=== PATIENT | female | born 1980 | race Caucasian/White ===

== ENCOUNTER → 2016-11-04 | Outpatient (REF) | payer OTHER | LOC: M LAB REF 18:31 | PROVIDERS: ATTEND Physician Assistant Medical | DX: J02.9 Acute pharyngitis, unspecified (principal) ==

== ENCOUNTER → 2017-03-02 | Outpatient (CLI) | payer OTHER ==
--- NOTE | 2017-03-02 12:46 | REP ---
Lumbar spine series: Five views. History: Low back pain. Comparison radiographs are from July 03, 2014. Findings: The lumbar vertebral body heights are preserved. There is mild disc space narrowing at L4-5 unchanged. Pedicles and posterior elements are intact. There is no evidence of spondylolysis or spondylolisthesis. Sacrum and SI joints are intact. There is mild facet hypertrophy bilaterally at L5-S1 and L4-5. Impression: Mild degenerative changes. No significant change from July 03, 2014. Signed by Hector Brito MD 03/02/2017 12:52 P
== END ==
LOC: M ADAMS 11:02
PROVIDERS: ATTEND Physician Assistant Medical
DX: M54.5 Low back pain (principal); M51.36 Other intervertebral disc degeneration, lumbar region; M51.37 Other intervertebral disc degeneration, lumbosacral region

== ENCOUNTER → 2017-05-13 | Outpatient (REF) | payer OTHER | LOC: M LAB REF 09:44 | PROVIDERS: ATTEND Physician Assistant | DX: J02.9 Acute pharyngitis, unspecified (principal) ==

== ENCOUNTER → 2017-09-12 | Outpatient (REF) | payer OTHER | LOC: M SFHCWAGY 15:31 | DX: Z12.4 Encounter for screening for malignant neoplasm of cervix (principal) | CPT/HCPCS: G0123 ==

== ENCOUNTER 2019-08-15 05:50 | Emergency (ER) | payer OTHER ==
[~2019-08-15] VITALS: Ht 165.1 cm; Wt 117.9 kg
[2019-08-15] MEDS ORDERED: LOSA25TA14 PO (06:15)
[2019-08-15] MEDS ORDERED: SIMV40TA20 PO (06:15)
[2019-08-15] MEDS ORDERED: PREVTAB2 PO (06:15)
[2019-08-15 06:28] LABS: BASO % 0.5 % (0.0-1.0); EOS % 0.4 % (0.0-3.0); HEMATOCRIT 43.2 % (36.0-47.0); HEMOGLOBIN 13.9 g/dl (12.0-15.5); LYMPH # 1.6 10^3/uL (1.5-5.0); LYMPH % 20.3 % (24.0-44.0); MEAN CORPUSCULAR HEMOGLOBIN 29.4 pg (27.0-33.0); MEAN CORPUSCULAR HGB CONC 32.2 g/dl (32.0-36.5); MEAN CORPUSCULAR VOLUME 91.5 fl (80.0-96.0); MONO # 0.5 10^3/uL (0.0-0.8); NEUTROPHILS # 5.7 10^3/uL (1.5-8.5); NEUTROPHILS % 72.5 % (36.0-66.0); PLATELET COUNT, AUTOMATED 368 10^3/uL (150-450); RED BLOOD COUNT 4.72 10^6/uL (4.00-5.40); WHITE BLOOD COUNT 7.8 10^3/uL (4.0-10.0)
--- NOTE | 2019-08-15 06:30 | REP ---
Clinical: Acute chest pain . Comparison: 09/05/2005 . Findings: The mediastinum and cardiac silhouette are stable and within normal limits for portable technique. The lung armstrong are clear without acute consolidation, effusion, or pneumothorax. Skeletal structures are intact. Impression: No acute cardiopulmonary process appreciated. Electronically Signed by Gonzalez Amin MD 08/15/2019 06:21 A
[2019-08-15 06:39] LABS: INR 1.03; PROTHROMBIN TIME 13.2 SECONDS (11.8-14.0)
[2019-08-15 07:07] LABS: ALBUMIN 3.5 GM/DL (3.2-5.2); ALT/SGPT 17 U/L (12-78); BILIRUBIN,DIRECT 0.1 MG/DL (0.0-0.2); BILIRUBIN,TOTAL 0.4 MG/DL (0.2-1.0); CK-MB VALUE MASS 1.1 NG/ML (<3.6); CPK CREATINE PHOSPHOKINASE 107 U/L (26-192); LIPASE 131 U/L (73-393); MB/CK RELATIVE INDEX 1.03 (< OR =4); TOTAL PROTEIN 7.4 GM/DL (6.4-8.2); TROPONIN I < 0.02 NG/ML (< 0.10)
[2019-08-15] MEDS ORDERED: HOLTER (08:01)
[2019-08-15] MEDS ORDERED: SUCR1TA PO (08:02)
[2019-08-15] MEDS ORDERED: OMEP40CA97 PO (08:02)
[2019-08-15 08:40] VITALS: BP 132/71
--- NOTE | 2019-08-15 13:27 | ECGEPIP ---
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
== END 2019-08-15 08:47 | disposition home or self-care (01) ==
LOC: M ED 05:50
DX: R00.2 Palpitations (principal); K21.9 Gastro-esophageal reflux disease without esophagitis; I10 Essential (primary) hypertension; E78.5 Hyperlipidemia, unspecified; E66.9 Obesity, unspecified; Z79.899 Other long term (current) drug therapy; Z79.3 Long term (current) use of hormonal contraceptives; Z88.1 Allergy status to other antibiotic agents; Z88.2 Allergy status to sulfonamides

== ENCOUNTER → 2019-08-15 | Outpatient (CLI) | payer OTHER ==
[~2019-08-15] MED LIST: HOLTER; LOSA25TA14 PO; OMEP40CA97 PO; PREVTAB2 PO; SIMV40TA20 PO; SUCR1TA PO
--- NOTE | 2019-08-17 22:27 | HOLTMON ---
[facility] Test Date: 2019-08-15 Pat Name: PATRICIO WILLS Department: Room: - Gender: Female Chief Supply Chain Officer: Jesi Bejarano/JESSICA MARCOS : 1980 Requested By: BINU Mcdonald Order Number: [id number] Reading MD: Anil Perez Interpretive Statements Normal sinus rhythm with a maximum heart of 127 bpm noted at 5:44:08 PM and a minimum rate of 59 bpm at 8:42:08 AM. No activity reported with the maximum heart rate. No pause. Very rare isolated PACs. No supraventricular run. No PVCs. Symptoms: Palpitations but no associated arrhythmias. Normal Holter monitor study. Electronically Signed on 08-17-2019 22:27:15 EST by Anil Perez
== END ==
LOC: M EKG 09:06
PROVIDERS: ATTEND Internal Medicine
DX: R00.2 Palpitations (principal)

== ENCOUNTER → 2019-09-30 | Outpatient (CLI) | payer OTHER ==
--- NOTE | 2019-09-30 17:09 | REPMRS ---
Patient History The patient states she had a clinical breast exam in September 2019. Patient is nulliparous. Family history of unknown cancer in father, colorectal cancer in maternal grandfather. Taking hormonal contraceptives for 8 years. 3D TOMOSYNTHESIS WAS PERFORMED. [facility] lifetime risk for breast cancer is 14.7%. Digital Woman Screen Mammo: September 30, 2019 - Exam #: [id number] Bilateral CC and MLO view(s) were taken. Technologist: Chiquis Rudolph Technologist FINDINGS: The breast tissue is heterogeneously dense. This may lower the sensitivity of mammography. There is no evidence of cancer on this mammogram. Scattered lymph nodes are seen in the axilla. Assessment: BI-RADS/ACR category 2 mammogram. Benign Findings. Recommendation Routine screening mammogram of both breasts in 1 year (for women over age 40). This mammogram was interpreted with the aid of an FDA-approved computer-aided dectection system. Electronically Signed By: Florencio Anguiano MD 09/30/19 [id number]
== END ==
LOC: M WHC 15:13
PROVIDERS: ATTEND Nurse Practitioner Women's Health
DX: Z12.31 Encounter for screening mammogram for malignant neoplasm of breast (principal); Z80.8 Family history of malignant neoplasm of other organs or systems; Z92.0 Personal history of contraception

== ENCOUNTER → 2020-09-30 | Outpatient (CLI) | payer OTHER ==
--- NOTE | 2020-09-30 16:38 | REPMRS ---
Patient History The patient states she had a clinical breast exam in September 2020. Family history of unknown cancer in father, colorectal cancer in maternal grandfather. Taking hormonal contraceptives for 8 years. Digital Woman Screen Mammo: September 30, 2020 - Exam #: [id number] Bilateral CC and MLO view(s) were taken. Technologist: Sindy Swift, Technologist Prior study comparison: September 30, 2019, bilateral digital woman screen mammo performed at [facility] and [facility]. FINDINGS: The breast tissue is almost entirely fat. The Volpara volumetric breast density category is: A. There has been no change in the appearance of the mammogram from the prior studies. There is no interval development of dominant mass, architectural distortion, or grouped microcalcification typical of malignancy. 3-D tomosynthesis shows no additional findings. Assessment: BI-RADS/ACR category 1 mammogram. Negative Mammogram. Recommendation Routine screening mammogram of both breasts in 1 year (for women over age 40). This patient's [facility] Lifetime Breast Cancer RIsk is estimated at 14.5 %. This mammogram was interpreted with the aid of an FDA-approved computer-aided dectection system. Electronically Signed By: Jonas Brito MD 09/30/20 [id number]
== END ==
LOC: M WHC 15:04
PROVIDERS: ATTEND Nurse Practitioner Women's Health
DX: Z12.31 Encounter for screening mammogram for malignant neoplasm of breast (principal); Z92.0 Personal history of contraception

== ENCOUNTER → 2020-09-30 | Outpatient (REF) | payer OTHER | LOC: M SFHCWAGY 17:14 | PROVIDERS: ATTEND Nurse Practitioner Women's Health | DX: Z12.4 Encounter for screening for malignant neoplasm of cervix (principal) | CPT/HCPCS: 87624; G0123 ==

== ENCOUNTER 2021-05-10 16:24 | Emergency (ER) | payer OTHER ==
[~2021-05-10] VITALS: Ht 165.1 cm; Wt 132.8 kg
[~2021-05-10 16:24] MED LIST changes: +OMEP40CA4 PO; -OMEP40CA97 PO
--- OUTSIDE RECORDS SUMMARY | 2021-05-10 16:29 | CCD | Continuity of Care Document ---
Author Author Jackie BLANCAS M.D. Organization Unknown Address [address] [facility] [address] [place] [address] Phone [phone] Care Team Providers Care Waredresser Name Role Phone Pérez Blancas MD [facility] [phone] Problems Active Problems Provider Date Hyperlipidemia Harjinder Carla, CENTRAL COMMUNICATIONS SPECIALIST Onset: 01/05/2015 Sciatica Harjinder Aguirre, CENTRAL COMMUNICATIONS SPECIALIST Onset: 01/05/2015 Obesity Harjinder Aguirre, CENTRAL COMMUNICATIONS SPECIALIST Onset: 01/05/2015 Social History Type Date Description Comments Sex Unknown ETOH Use Rarely consumes wine Tobacco Use Start: Unknown Patient has never smoked Allergies, Adverse Reactions, Alerts Active Allergies Criticality Reaction | Severity Comments Date Sulfa Unable to assess criticality Rash 01/05/2015 Medications Active Medications SIG Qnty Indications Ordering Provide r Date Simvastatin 40mg Tablets Take One Tablet By Mouth AT Bedtime 90tabs Fiona Pineda DO 12/27/2020 Ropinirole HCL 0.25mg Tablets take 2 tabs before bed. 60tabs G25.81 Pérez Blancas M.D. 02/23/2020 Sertraline HCL 50mg Tablets 1 by mouth every day 90tabs F41.9 Pérez Blancas M.D. 10/03/2019 Hydroxyzine HCL 25mg Tablets take 1 tablet QHS as needed anxiety 30tabs F41.9 Pérez Blancas M.D. 09/[address] 1 by mouth every day 90caps Pérez Blancas M.D. 08/18/2019 Eucrisa 2% Ointment use once daily as needed 60gm Pérez Blancas M.D. 06/17/2018 Previfem 0.25-35mg-mcg Tablets 1 by mouth every day Pérez Blancas M.D. 12/14/2017 Aleve 220mg Capsules 1 by mouth every day as needed Harjinder Carla, [facility] 03/07/2017 Aczone Gel Apply qd Harjinder Carla, [facility] 07/04/2016 Multivitamin Women Tablets 1 by mouth every day Harjinder Carla, [facility] 07/04/2016 Losartan Potassium 25mg Tablets Take One Tablet By Mouth Daily 90tabs I10 Fiona Pineda, 04/03/2016 Tazorac Cream qd Unknown Onexton 1.2-3.75% Gel Apply q d Unknown Medications Administered in Office Medication SIG Qnty Indications Ordering Provider Date Covid-19 vaccine, Unspecified Inj ection Unknown 07/31/2020 Immunizations CPT Code Status Date Vaccine Lot # U-Flu Given 04/26/2018 Influenza,Unspecified [id number] Vital Signs Date Vital Result Comment 02/28/2021 10:33am BP Systolic 136 mmHg BP Diastolic 82 mmHg Heart Rate 78 /min Height 65.50 inches 5'5.50" Weight 287.00 lb BMI (Body Mass Index) 47.0 kg/m2 08/27/2020 3:09pm BP Systolic 132 mmHg BP Diastolic 88 mmHg Heart Rate 70 /min Height 65.50 inches 5'5.50" Weight 291.00 lb BMI (Body Mass Index) 47.7 kg/m2 Results Test Acquired Date Facility Test Result H/L Range Note Comprehensive Chem Profile 02/22/2021 [facility] Head Start Teacher: [place] [address] [phone] Glucose 83 mg/dL 74 - 99 1 BUN 9 mg/dL 7 - 18 Creatinine 0.8 mg/dL 0.6 - 1.3 Sodium 139 mEq/L 136 - 145 Potassium 4.3 mEq/L 3.5 - 5.1 Chloride 104 mEq/L 98 - 107 Carbon Dioxide 27 mEq/L 21 - 32 Calcium 8.9 mg/dL 8.5 - 10.1 Alk. Phosphatase 67 mg/dL 46 - 116 Total Bilirubin 0.4 mg/dL 0.2 - 1.0 Ast (Sgot) 15 U/L 15 - 37 Alt (SGPT) 26 U/L 12 - 78 Albumin 3.0 g/dL Low 3.4 - 5.0 2 Total Protein 6.4 g/dL 6.4 - 8.2 A/G Ratio 0.88 CALC Low 1.00 - 1.90 GFR >= 60 mL/min >60 GFR >= 60 mL/min >60 3 Lipid Profile 02/22/2021 [facility] Head Start Teacher: [place] [address] [phone] Cholesterol 199 mg/dL 131 - 200 Triglycerides 157 mg/dL High 30 - 150 HDL Cholesterol 73 mg/dL High 35 - 60 LDL (Calculated) 95 CALC 50 - 159 1 100-125 mg/dL PRE-DIABET ES/FASTING >126 mg/dL DIABETES/FASTING 2 NOTE: RESULT VERIFIED. 3 CHRONIC KIDNEY DISEASE STAGI NG PER NKF STAGE I & II GFR >= 60 NORMAL TO MILDLY DECREASED STAGE III GFR 30-59 MODERATELY DECREASED STAGE IV GFR 15-29 SEVERELY DECREASED STAGE V GFR <15 VERY LITTLE GFR LEFT ESRD GFR <15 ON BEAM PRESS OPERATOR Procedures Date Code Description Status 02/28/2021 51688 Est Prevent Med (40-64Yrs) Compl eted Medical Devices Description No Information Available Encounters Type Date Location Provider Dx Diagnosis Office Visit 02/28/2021 10:30a [facility] Pérez Blancas M.D. Z00.00 Encntr for general adult medical exam w/ o abnormal findings I10 Essential (primary) hyperten mansi E78.5 Hyperlipidemia, unspecified G25.81 Restless legs syndrome K21.9 Gastro-esophageal reflux dis ease without esophagitis M54.31 Sciatica, right side F41.9 Anxiety disorder, unspecifie d L20.9 Atopic dermatitis, unspecifi ed G47.09 Other insomnia Z13.89 Encounter for screening for other disorder Assessments Date Code Description Provider 02/28/2021 Z00.00 Encounter for genera l adult medical examination without abnormal findings Pérez Blancas M.D. 02/28/2021 I10 Essential (primary) hypertension Pérez Blancas M.D. 02/28/2021 E78.5 Hyperlipidemia, unspecified Patria Blancas M.D. 02/28/2021 G25.81 Restless legs syndrome Pérez Blancas M.D. 02/28/2021 K21.9 Gastro-esophageal reflux disease without esophagitis Pérez Blancas M.D. 02/28/2021 M54.31 Sciatica, right side Pérez maher M.D. 02/28/2021 F41.9 Anxiety disorder, unspecified Jaya Blancas M.D. 02/28/2021 L20.9 Atopic dermatitis, unspecified J frantz Blancas M.D. 02/28/2021 G47.09 Other insomnia Pérez Blancas M.D. 02/28/2021 Z13.89 Encounter for screening for othe r disorder Pérez Blancas M.D. 02/22/2021 I10 Essential (primary) hypertension Pérez Blancas M.D. 02/22/2021 I10 Essential (primary) hypertension Lab Schedule 02/22/2021 E78.5 Hyperlipidemia, unspecified Patria Blancas M.D. 02/22/2021 E78.5 Hyperlipidemia, unspecified Lab Schedule Plan of Treatment Future Appointment(s):* 09/09/2021 2:30 pm - [facility] 02/28/2021 - Pérez Blancas M.D.* Z00.00 Encntr for general adult medical exam w/o abnormal findings * I10 Essential (primary) hypertension * E78.5 Hyperlipidemia, unspecified * G25.81 Restless legs syndrome * K21.9 Gastro-esophageal reflux disease without esophagitis * M54.31 Sciatica, right side * F41.9 Anxiety disorder, unspecified * L20.9 Atopic dermatitis, unspecified * G47.09 Other insomnia * Z13.89 Encounter for screening for other disorder * * Comments:* 1. Annual well visit: Well education was done today. She follows up with Jazlyn Newell for Director Of Intelligence care as well as her mammogram in September 2020, which was normal. She reports her last Tdap was possibly in 2012, but will check and let us know appropriately. Patient is encouraged to continue to follow positive lifestyle changes.2. Hypertension: Blood pressure is stable on present regimen, will continue and monitor.3. Hyperlipidemia: Improved cholesterol and LDL is less than 100 now, although TGs are slightly high. Otherwise, her HDL remains protective. She will continue to watch her diet carefully. We will continue to monitor.4. Restless legs syndrome: Generally doing well with intermittent symptoms on Ropinirole at bedtime. We will continue to monitor her on present regimen at this point.5. Gastro- esophageal reflux disease without esophagitis: Does require PPI once daily with improvement in her symptoms and has stopped using Carafate. We will continue to monitor.6. Sciatica, right side: Recent visit at [facility], improved with prednisone for couple of weeks initially, but recurred now. She is going to see at [facility] and had good re sults prior. She will let us know if she has any issues or concerns.7. Anxiety disorder: She appears to be doing well with sertraline at current dose, will continue and monitor.8. Atopic dermatitis: Doing well on current regimen. She will continue to follow up with [facility] appropriately.9. Other insomnia: She is using Trazodone as needed, which is appropriate for regular use. She will continue to use as needed.Ongoing cares: I am going to see her again in months with . If she has new problems or issues sooner she will let us know. Functional Status Description No Information Available Mental Status Description No Information Available Referrals Description No Information Available
--- OUTSIDE RECORDS SUMMARY | 2021-05-10 16:29 | CCD | Continuity of Care Document ---
Author Author Jackie BLANCAS M.D. Organization Unknown Address [address] [facility] [address] [place] [address] Phone [phone] Care Team Providers Care Gage Designer Name Role Phone Pérez Blancas MD [facility] [phone] Problems Active Problems Provider Date Hyperlipidemia Harjinder Carla, BREAK UP WORKER Onset: 01/05/2015 Sciatica Harjinder Aguirre, BREAK UP WORKER Onset: 01/05/2015 Obesity Harjinder Aguirre, BREAK UP WORKER Onset: 01/05/2015 Social History Type Date Description Comments Sex Unknown ETOH Use Rarely consumes wine Tobacco Use Start: Unknown Patient has never smoked Allergies, Adverse Reactions, Alerts Active Allergies Reaction Severity Comments Date Sulfa Rash 01/05/2015 Medications Active Medications SIG Qnty [...] every day 90caps Pérez Blancas M.D. 08/18/2019 Sucralfate 1gm Tablets take one tablet by mouth one hour before meals four times a day 120tabs Jaya Blancas M.D. 08/18/2019 Eucrisa 2% Ointment use once daily as needed 60gm Pérez Blancas M.D. 06/17/2018 Previfem 0.25-35mg-mcg Tablets 1 by mouth every day Pérez Blancas M.D. 12/14/2017 Aleve 220mg Capsules 1 by mouth every day as needed Harjinder Aguirre, [facility] 03/07/2017 Aczone Gel Apply qd Harjinder Aguirre, [facility] 07/04/2016 Multivitamin Women Tablets 1 by mouth every day Harjinder Aguirre, [facility] 07/04/2016 Losartan Potassium 25mg Tablets Take One Tablet By Mouth Daily 90tabs I10 Fiona Pineda,DO 04/03/2016 Tazorac Cream qd Unknown Onexton 1.2-3.75% Gel Apply q d Unknown Medications Administered in Office Medication SIG Qnty Indications Ordering Provider Date Covid-19 vaccine, Unspecified Inj ection Unknown 07/31/2020 Immunizations CPT Code Status Date Vaccine Lot # U-Flu Given 04/26/2018 Influenza,Unspecified [id number] Vital Signs Date Vital Result Comment 02/28/2021 [...] H/L Range Note Comprehensive Chem Profile 02/22/2021 [facility] Parimutuel Clerk: Dr Cricket Zimmer [place], [place] [id number] [phone] Glucose 83 mg/dL 74 - 99 1 [...] 60 mL/min >60 3 Lipid Profile 02/22/2021 [facility] Parimutuel Clerk: [place] [address] [phone] Cholesterol 199 mg/dL 131 - 200 Triglycerides [...] LITTLE GFR LEFT ESRD GFR <15 ON CERTIFIED CAREGIVER Procedures Description No Information Available Medical Devices Description No Information Available Encounters Description No Information Available Assessments Date Code Description Provider 02/22/2021 I10 Essential (primary) hypertension Pérez Blancas M.D. 02/22/2021 I10 Essential (primary) hypertension Lab Schedule 02/22/2021 E78.5 Hyperlipidemia, unspecified Patria Blancas M.D. 02/22/2021 E78.5 Hyperlipidemia, unspecified Lab Schedule Plan of Treatment No Information Available Functional Status Description No Information Available Mental Status Description No Information Available Referrals Description No Information Available
--- OUTSIDE RECORDS SUMMARY | 2021-05-10 16:29 | CCD ---
Continuity of Care Document (CCD) Created on: 02/28/2021 Jackie Guzmán External Reference #: [id number] : [id number] Sex: Female Author Author Lab Schedule, Jackie Xiao Organization Unknown Address [address] [place] [address] Phone Unavailable Care Team Providers Care Motorcycle Repair Shop Supervisor Name Role Phone Pérez Bass MD [facility] [phone] Problems Active Problems Provider Date Hyperlipidemia Harjinder Carla, EXCELLENCE CONSULTANT Onset: 01/05/2015 Sciatica Harjinder Carla, EXCELLENCE CONSULTANT Onset: 01/05/2015 Obesity Harjinder Carla, EXCELLENCE CONSULTANT Onset: 01/05/2015 Social History Type Date Description [...] 2 tabs before bed. 60tabs G25.81 Pérez Bass M.D. 02/23/2020 Sertraline HCL 50mg Tablets 1 by mouth every day 90tabs F41.9 Pérez Bass M.D. 10/03/2019 Hydroxyzine HCL 25mg Tablets take 1 tablet QHS as needed anxiety 30tabs F41.9 Pérez Bass M.D. 09/[address] 1 by mouth every day 90caps Pérez Bass M.D. 08/18/2019 Sucralfate 1gm Tablets take one tablet by mouth one hour before meals four times a day 120tabs Jaya Bass M.D. 08/18/2019 Eucrisa 2% Ointment use once daily as needed 60gm Pérez Bass M.D. 06/17/2018 Previfem 0.25-35mg-mcg Tablets 1 by mouth every day Pérez Bass M.D. 12/14/2017 Aleve 220mg Capsules 1 by mouth every day as needed Harjinder Carla, [facility] 03/07/2017 Aczone Gel Apply qd Harjinder Carla, [facility] 07/04/2016 Multivitamin Women Tablets 1 by mouth every day Harjinder Carla, [facility] 07/04/2016 Losartan Potassium 25mg Tablets Take One Tablet By Mouth Daily 90tabs I10 Fiona Pineda, 04/03/2016 Tazorac Cream qd Unknown Onexton 1.2-3.75% Gel Apply q d Unknown Medications Administered in Office Medication SIG Qnty Indications Ordering Provider Date Covid-19 vaccine, Unspecified Inj ection Unknown 07/31/2020 Immunizations CPT Code Status Date Vaccine Lot # U-Flu Given 04/26/2018 Influenza,Unspecified [id number] Vital Signs Date Vital Result Comment 02/28/2021 [...] H/L Range Note Comprehensive Chem Profile 02/22/2021 [facility] Escrow Officer: [place] [address] [phone] Glucose 83 mg/dL 74 - 99 1 [...] 60 mL/min >60 3 Lipid Profile 02/22/2021 [facility] Escrow Officer: [place] [address] [phone] Cholesterol 199 mg/dL 131 - 200 Triglycerides [...] LITTLE GFR LEFT ESRD GFR <15 ON BUSINESS ANALYST SALES OPERATIONS Procedures Description No Information Available Medical Devices Description No Information Available Encounters Description No Information Available Assessments Date Code Description Provider 02/22/2021 I10 Essential (primary) hypertension Pérez Bass M.D. 02/22/2021 I10 Essential (primary) hypertension Lab Schedule 02/22/2021 E78.5 Hyperlipidemia, unspecified Patria Bass M.D. 02/22/2021 E78.5 Hyperlipidemia, unspecified Lab Schedule Plan of Treatment No Information Available Functional Status Description No Information Available Mental Status Description No Information Available Referrals Description No Information Available
--- OUTSIDE RECORDS SUMMARY | 2021-05-10 16:30 | CCD | Continuity of Care Document ---
Author Author Lab Schedule, Jackie Xiao Organization Unknown Address [address] [place] [phone] Phone Unavailable Care Team Providers Care Socket Puller Name Role Phone Pérez Bass MD [facility] [phone] Problems Active Problems Provider Date Hyperlipidemia Harjinder Carla, NUT TAPPER Onset: 01/05/2015 Sciatica Harjinder Carla, NUT TAPPER Onset: 01/05/2015 Obesity Harjinder Carla, NUT TAPPER Onset: 01/05/2015 Social History Type Date Description [...] 1 by mouth every day 90tabs F41.9 Pérze Bass M.D. 10/03/2019 Hydroxyzine HCL 25mg Tablets [...] mouth every day as needed Harjinder Carla, [facility] 03/07/2017 Aczone Gel Apply qd Harjinder Carla, [facility] 07/04/2016 Multivitamin Women Tablets 1 by mouth every day Harjinder Carla, [facility] 07/04/2016 Losartan Potassium 25mg Tablets Take One Tablet By Mouth Daily 90tabs I10 Fiona Pineda, 04/03/2016 Tazorac Cream qd Unknown Onexton 1.2-3.75% Gel Apply q d Unknown Medications Administered in Office Medication SIG Qnty Indications Ordering Provider Date Covid-19 vaccine, Unspecified Inj ection Unknown 07/31/2020 Immunizations CPT Code Status Date Vaccine Lot # U-Flu Given 04/26/2018 Influenza,Unspecified [id number] Vital Signs Date Vital Result Comment 08/27/2020 3:09pm BP Systolic 132 mmHg BP Diastolic 88 mmHg Heart Rate 70 /min Height 65.50 inches 5'5.50" Weight 291.00 lb BMI (Body Mass Index) 47.7 kg/m2 02/23/2020 1:28pm BP Systolic 138 mmHg BP Diastolic 80 mmHg Heart Rate 78 /min Height 65.50 inches 5'5.50" Weight 276.00 lb BMI (Body Mass Index) 45.2 kg/m2 Results Test Acquired Date Facility Test Result H/L Range Note Comprehensive Chem Profile 02/22/2021 [facility] Weight Tester: [place] [address] [phone] Glucose 83 mg/dL 74 - 99 1 [...] 60 mL/min >60 3 Lipid Profile 02/22/2021 [facility] Weight Tester: Dr Cricket Zimmer [place], [place] [id number] [phone] Cholesterol 199 mg/dL 131 - 200 Triglycerides [...] LITTLE GFR LEFT ESRD GFR <15 ON DEPUTY [place] MARSHAL Procedures Description No Information Available Medical Devices Description No Information Available Encounters Description No Information Available Assessments Date Code Description Provider 02/22/2021 I10 Essential (primary) hypertension Pérez Bass M.D. 02/22/2021 I10 Essential (primary) hypertension Lab Schedule 02/22/2021 E78.5 Hyperlipidemia, unspecified Patria Bass M.D. 02/22/2021 E78.5 Hyperlipidemia, unspecified Lab Schedule Plan of Treatment Future Appointment(s):* 02/28/2021 10:30 am - Pérez Bass M.D. at [facility] 08/27/2020 - Pérez Bass M.D.* E78.5 Hyperlipidemia, unspecified * G25.81 Restless legs syndrome * I10 Essential (primary) hypertension * K21.9 Gastro-esophageal reflux disease without esophagitis * M54.5 Low back pain * F41.9 Anxiety disorder, unspecified * L20.9 Atopic dermatitis, unspecified * * Comments:* 1. Hyperlipidemia: Slightly increased cholesterol with a protective HDL. I have encouraged her to cut down fatty foods and to eat more vegetables. Education was done. We will continue to monitor.2. Restless legs syndrome: Doing well with Ropinirole, will continue and monitor.3. Hypertension: Blood pressure is stable on present regimen, will continue and monitor.4. GERD: Does require PPI daily with improvement in her symptoms. She does not use Carafate. We will continue to monitor.5. Low back pain: Stable. She did receive physical therapy prior at [facility]. She will let us know if she has any issues or concerns.6. Anxiety disorder: She is doing excellent on present regimen in the winter, will continue and monitor.7. Atopic dermatitis: Good results on present regimen. She did see Dr. Machado at [facility] in last December. She will follow up with them appropriately. We will monitor.8. Sinus infection: Education was done. Not a major issue. We will monitor.Ongoing cares: I am going to see her again in 6 months with CMP& lipids. If she has new problems or issues sooner she will let us know. Functional Status Description No Information Available Mental Status Description No Information Available Referrals Description No Information Available
--- OUTSIDE RECORDS SUMMARY | 2021-05-10 16:30 | CCD | Continuity of Care Document ---
Author Author Lab Schedule, Jackie Xiao Organization Unknown Address [address] [place] [phone] Phone Unavailable Care Team Providers Care Special Education Assistant Name Role Phone Pérez Bass MD AUTM [phone] Problems Active Problems Provider Date Hyperlipidemia Harjinder Carla, [employer] Onset: 01/05/2015 Sciatica Harjinder Carla, [employer] Onset: 01/05/2015 Obesity Harjinder Carla, [employer] Onset: 01/05/2015 Social History Type Date Description [...] mouth every day as needed Harjinder Carla, [facility] [place] 03/07/2017 Aczone Gel Apply qd Harjinder Carla, [facility] [place] 07/04/2016 Multivitamin Women Tablets 1 by mouth every day Harjinder Carla, [facility] [place] 07/04/2016 Losartan Potassium 25mg Tablets Take One Tablet By Mouth Daily 90tabs I10 Fiona Pineda, 04/03/2016 Tazorac Cream qd Unknown Onexton 1.2-3.75% Gel Apply q d Unknown Medications Administered in Office Medication SIG Qnty Indications Ordering Provider Date Covid-19 vaccine, Unspecified Inj ection Unknown 07/31/2020 Immunizations CPT Code Status Date Vaccine Lot # U-[id number] Given 04/26/2018 Influenza,Unspecified [id number] Vital Signs Date Vital Result Comment 08/27/2020 3:09pm BP Systolic 132 mmHg BP Diastolic 88 mmHg Heart Rate 70 /min Height 65.50 inches 5'5.50" Weight 291.00 lb BMI (Body Mass Index) 47.7 kg/m2 02/23/2020 1:28pm BP Systolic 138 mmHg BP Diastolic 80 mmHg Heart Rate 78 /min Height 65.50 inches 5'5.50" Weight 276.00 lb BMI (Body Mass Index) 45.2 kg/m2 Results Description No Information Available Procedures Date Code Description Status 08/27/2020 36066 Office/Outpatient Established Mo d MDM 30-39 Min Completed Medical Devices Description No Information Available Encounters Type Date Location Provider Dx Diagnosis Office Visit 08/27/2020 3:00p [facility] Pérez Bass M.D. E78.5 Hyperlipidemia, unspecified G25.81 Restless legs syndrome I10 Essential (primary) hyperten mansi K21.9 Gastro-esophageal reflux dis ease without esophagitis M54.5 Low back pain F41.9 Anxiety disorder, unspecifie d L20.9 Atopic dermatitis, unspecifi ed Assessments Date Code Description Provider 08/27/2020 E78.5 Hyperlipidemia, unspecified Patria Bass M.D. 08/27/2020 G25.81 Restless legs syndrome Pérez Bass M.D. 08/27/2020 I10 Essential (primary) hypertension Pérez Bass M.D. 08/27/2020 K21.9 Gastro-esophageal reflux disease without esophagitis Pérez Bass M.D. 08/27/2020 M54.5 Low back pain Pérez Bass M.D. 08/27/2020 F41.9 Anxiety disorder, unspecified Jaya Bass M.D. 08/27/2020 L20.9 Atopic dermatitis, unspecified J frantz Bass M.D. Plan of Treatment Future Appointment(s):* 02/28/2021 10:30 am - Pérez Bass M.D. at [facility] 08/27/2020 - Pérez Bass M.D.* E78.5 [...] She did receive physical therapy prior at [facility]. She will let us know if she has any issues or concerns.6. Anxiety disorder: She is doing excellent on present regimen in the winter, will continue and monitor.7. Atopic dermatitis: Good results on present regimen. She did see Dr. Machado at [facility] in last December. She will follow [...]
--- OUTSIDE RECORDS SUMMARY | 2021-05-10 16:30 | CCD ---
Author Author [facility] Organization [facility] Address Unknown Phone Unavailable Care Team Providers Care Laundry Attendant Name Role Phone Maring, Everardo PA Unavailable Unavailable Maring, Everardo PA Unavailable Unavailable Maring, Everardo PA Unavailable Unavailable Maring, Everardo PA Unavailable Unavailable Maring, Everardo PA Unavailable Unavailable Maring, Everardo PA Unavailable Unavailable Maring, Everardo PA Unavailable Unavailable Maring, Everardo PA Unavailable Unavailable Maring, Everardo PA Unavailable Unavailable Maring, Everardo PA Unavailable Unavailable Maring, Everardo PA Unavailable Unavailable Maring, Everardo PA Unavailable Unavailable Maring, Everardo PA Unavailable Unavailable Maring, Everardo PA Unavailable Unavailable Maring, Everardo PA Unavailable Unavailable Maring, Everardo PA Unavailable Unavailable Gastelum, Halle ELECTRIC TRAIN DRIVER Unavailable Unavailable Gastelum, Halle ELECTRIC TRAIN DRIVER Unavailable Unavailable Gastelum, Halle ELECTRIC TRAIN DRIVER Unavailable Unavailable Gastelum, Halle ELECTRIC TRAIN DRIVER Unavailable Unavailable Gastelum, Halle ELECTRIC TRAIN DRIVER Unavailable Unavailable Gastelum, Halle ELECTRIC TRAIN DRIVER Unavailable Unavailable Gastelum, Halle ELECTRIC TRAIN DRIVER Unavailable Unavailable Gastelum, Halle ELECTRIC TRAIN DRIVER Unavailable Unavailable Gastelum, Halle ELECTRIC TRAIN DRIVER Unavailable Unavailable Gastelum, Halle ELECTRIC TRAIN DRIVER Unavailable Unavailable Gastelum, Halle ELECTRIC TRAIN DRIVER Unavailable Unavailable Gastelum, Halle ELECTRIC TRAIN DRIVER Unavailable Unavailable Gastelum, Halle ELECTRIC TRAIN DRIVER Unavailable Unavailable Carol Bass MD Unavailable Unavailable Carol Bass MD Unavailable Unavailable Carol Bass MD Unavailable Unavailable Carol Bass MD Unavailable Unavailable Carol Bassson MD Unavailable Unavailable White F Pérez CABRERA Unavailable Unavailable White F Pérez CABRERA Unavailable Unavailable White F Pérez CABRERA Unavailable Unavailable White F Pérez CABRERA Unavailable Unavailable White F Pérez CABRERA Unavailable Unavailable White F Pérez CABRERA Unavailable Unavailable White F Pérez CABRERA Unavailable Unavailable White F Pérez CABRERA Unavailable Unavailable White F Pérez CABRERA Unavailable Unavailable White F Pérez CABRERA Unavailable Unavailable White F Pérez CABRERA Unavailable Unavailable White F Pérez CABRERA Unavailable Unavailable White F Pérez CABRERA Unavailable Unavailable White F Pérez CABRERA Unavailable Unavailable White F Pérez CABRERA Unavailable Unavailable White F Pérez CABRERA Unavailable Unavailable White F Pérez CABRERA Unavailable Unavailable White F Pérez CABRERA Unavailable Unavailable White F Pérez CABRERA Unavailable Unavailable White F Pérez CABRERA Unavailable Unavailable White F Pérez CABRERA Unavailable Unavailable White F Pérez CABRERA Unavailable Unavailable White F Pérez CABRERA Unavailable Unavailable Kali F Pérez CABRERA Unavailable Unavailable Kali F Pérez CABRERA Unavailable Unavailable Kali F Pérez CABRERA Unavailable Unavailable Kali F Pérez CABRERA Unavailable Unavailable Kali F Pérez CABRERA Unavailable Unavailable Kali F Pérez CABRERA Unavailable Unavailable Kali F Pérez CABRERA Unavailable Unavailable Kali F Pérez CABRERA Unavailable Unavailable Kali F Pérez CABRERA Unavailable Unavailable Kali F Pérez CABRERA Unavailable Unavailable Kali F Pérez CABRERA Unavailable Unavailable Kali F Pérez CABRERA Unavailable Unavailable Kali F Pérez CABRERA Unavailable Unavailable Kali F Pérez CABRERA Unavailable Unavailable Kali F Pérez CABRERA Unavailable Unavailable Kali F Pérez CABRERA Unavailable Unavailable Kali F Pérez CABRERA Unavailable Unavailable Kali F Pérez CABRERA Unavailable Unavailable Carol Bass MD Unavailable Unavailable Kali F Pérez CABRERA Unavailable Unavailable Kali F Pérez CABRERA Unavailable Unavailable Kali F Pérez CABRERA Unavailable Unavailable Kali F Pérez CABRERA Unavailable Unavailable Kali F Pérez CABRERA Unavailable Unavailable Kali F Pérez CABRERA Unavailable Unavailable Kali F Pérez CABRERA Unavailable Unavailable Kali F Pérez CABRERA Unavailable Unavailable Kali F Pérez CABRERA Unavailable Unavailable Kali F Pérez CABRERA Unavailable Unavailable Kali F Pérez CABRERA Unavailable Unavailable Kali F Pérez CABRERA Unavailable Unavailable Kali F éPrez CABRERA Unavailable Unavailable Kali F Pérez CABRERA Unavailable Unavailable Kali F Pérez CABRERA Unavailable Unavailable Kali F Pérez CABRERA Unavailable Unavailable Carol Bass MD Unavailable Unavailable Carol Bass MD Unavailable Unavailable Kali F Pérez CABRERA Unavailable Unavailable Carol Bass MD Unavailable Unavailable Carol Bass MD Unavailable Unavailable Carol Bass MD Unavailable Unavailable Carol Bass MD Unavailable Unavailable Carol Bass MD Unavailable Unavailable Carol Bass MD Unavailable Unavailable Carol Bass MD Unavailable Unavailable Carol Bass MD Unavailable Unavailable Carol Bass MD Unavailable Unavailable Carol Bass MD Unavailable Unavailable Carol Bass MD Unavailable Unavailable ALEXANDRA Martinez, Lexy Unavailable CarguTolu shankar Carter DO Unavailable Unavailable CarguelloTolu Carter DO Unavailable Unavailable CarguelloTolu Carter DO Unavailable Unavailable CarguelloTolu Carter DO Unavailable Unavailable CarguelloTolu Carter DO Unavailable Unavailable CarguelloTolu Carter DO Unavailable Unavailable CarguelloTolu Carter DO Unavailable Unavailable CarguelloTolu Carter DO Unavailable Unavailable CarguelloTolu Carter DO Unavailable Unavailable CarguelloTolu Carter DO Unavailable Unavailable CarguelloTolu Carter DO Unavailable Unavailable CarguelloTolu Carter DO Unavailable Unavailable CarguelloTolu Carter DO Unavailable Unavailable CarguelloTolu Carter DO Unavailable Unavailable CarguelloTolu Carter DO Unavailable Unavailable CarguelloTolu Carter DO Unavailable Unavailable CarguelloTolu Carter DO Unavailable Unavailable CarguelloTolu Carter DO Unavailable Unavailable CarguelloTolu Carter DO Unavailable Unavailable CarguelloTolu Carter DO Unavailable Unavailable CarguelloTolu Carter DO Unavailable Unavailable CarguelloTolu Carter DO Unavailable Unavailable CarguelloTolu Carter DO Unavailable Unavailable CarguelloTolu Carter DO Unavailable Unavailable CarguelloTolu Carter DO Unavailable Unavailable CarguelloTolu Carter DO Unavailable Unavailable CarguelloTolu Carter DO Unavailable Unavailable CarguelloTolu Carter DO Unavailable Unavailable CarguelloTolu Carter DO Unavailable Unavailable CarguelloTolu Carter DO Unavailable Unavailable CarguelloTolu Carter DO Unavailable Unavailable CarguelloTolu Carter DO Unavailable Unavailable CarguelloTolu Carter DO Unavailable Unavailable CarguelloTolu Carter DO Unavailable Unavailable CarguelloTolu Carter DO Unavailable Unavailable CarguelloTolu Carter DO Unavailable Unavailable CarguelloTolu Carter DO Unavailable Unavailable CarguelloTolu Carter DO Unavailable Unavailable CarguelloTolu Carter DO Unavailable Unavailable Carguello, J Carter DO Unavailable Unavailable Carguello J Carter DO Unavailable Unavailable Carguello J Carter DO Unavailable Unavailable Carguello J Carter DO Unavailable Unavailable Carguello J Carter DO Unavailable Unavailable Carguello J Carter DO Unavailable Unavailable Carguello J Carter DO Unavailable Unavailable Carguello, J Carter DO Unavailable Unavailable Carguello, J Carter DO Unavailable Unavailable Carguello, J Carter DO Unavailable Unavailable Carguello, J Carter DO Unavailable Unavailable Carguello J Carter DO Unavailable Unavailable Carguello J Carter DO Unavailable Unavailable Carguello J Carter DO Unavailable Unavailable Carguello J Carter DO Unavailable Unavailable Carguello J Carter DO Unavailable Unavailable Carguello J Carter DO Unavailable Unavailable Carguello J Carter DO Unavailable Unavailable Carguello, J Carter DO Unavailable Unavailable Carguello J Carter DO Unavailable Unavailable Carguello J Carter DO Unavailable Unavailable Carguello, J Carter DO Unavailable Unavailable Carguello J Carter DO Unavailable Unavailable Carguello J Carter DO Unavailable Unavailable Carguello J Carter DO Unavailable Unavailable Carguello J Carter DO Unavailable Unavailable Carguello J Carter DO Unavailable Unavailable Carguello J Carter DO Unavailable Unavailable Carguello J Carter DO Unavailable Unavailable Carguello J Carter DO Unavailable Unavailable Carguello J Carter DO Unavailable Unavailable Carguello J Carter DO Unavailable Unavailable Carguello J Carter DO Unavailable Unavailable Carguello J Carter DO Unavailable Unavailable Carguello J Carter DO Unavailable Unavailable Carguello J Carter DO Unavailable Unavailable Carguello J Carter DO Unavailable Unavailable Carguello J Carter DO Unavailable Unavailable Carguello J Carter DO Unavailable Unavailable Carguello J Carter DO Unavailable Unavailable Carguello J Carter DO Unavailable Unavailable Carguello J Carter DO Unavailable Unavailable Carguello J Carter DO Unavailable Unavailable Carguello J Carter DO Unavailable Unavailable Carguello J Carter DO Unavailable Unavailable Carguello J Carter DO Unavailable Unavailable Carguello J Carter DO Unavailable Unavailable Carguello J Carter DO Unavailable Unavailable Carguello J Carter DO Unavailable Unavailable KATHARINA JONES Unavailable Unavailable ROBERT, KATHARINA PA Unavailable Unavailable ROBERT, KATHARINA PA Unavailable Unavailable ROBERT, KATHARINA PA Unavailable Unavailable ROBERT, KATHARINA PA Unavailable Unavailable ROBERT, KATHARINA PA Unavailable Unavailable ROBERT, KATHARINA PA Unavailable Unavailable ROBERT, KATHARINA PA Unavailable Unavailable ROBERT, KATHARINA PA Unavailable Unavailable ROBERT, KATHARINA PA Unavailable Unavailable ROBERT, KATHARINA PA Unavailable Unavailable ROBERT, KATHARINA PA Unavailable Unavailable ROBERT, KATHARINA PA Unavailable Unavailable ROBERT, KATHARINA PA Unavailable Unavailable ROBERT, KATHARINA PA Unavailable Unavailable ROBERT, KATHARINA PA Unavailable Unavailable ROBERT, KATHARINA PA Unavailable Unavailable ROBERT, KATHARINA PA Unavailable Unavailable ROBERT, KATHARINA PA Unavailable Unavailable ROBERT, KATHARINA PA Unavailable Unavailable ROBERT, KATHARINA PA Unavailable Unavailable ROBERT, KATHARINA PA Unavailable Unavailable ROBERT, KATHARINA PA Unavailable Unavailable ROBERT, KATHARINA PA Unavailable Unavailable ROBERT, KATHARINA PA Unavailable Unavailable ROBERT, KATHARINA PA Unavailable Unavailable ROBERT, KATHARINA PA Unavailable Unavailable ROBERT, KATHARINA PA Unavailable Unavailable ROBERT, KATHARINA PA Unavailable Unavailable ROBERT, KATHARINA PA Unavailable Unavailable ROBERT, KATHARINA PA Unavailable Unavailable ROBERT, KATHARINA PA Unavailable Unavailable ROBERT, KATHARINA PA Unavailable Unavailable ROBERT, KATHARINA PA Unavailable Unavailable ROBERT, KATHARINA PA Unavailable Unavailable ROBERT, KATHARINA PA Unavailable Unavailable Re-disclosure Warning The records that you are about to access may contain information from federally-assisted alcohol or drug abuse programs. If such information is present, then the following federally mandated warning applies: This information has been disclosed to you from records protected by federal confidentiality rules (42 CFR part 2). The federal rules prohibit you from making any further disclosure of this information unless further disclosure is expressly permitted by the written consent of the person to whom it pertains or as otherwise permitted by 42 CFR part 2. A general authorization for the release of medical or other information is NOT sufficient for this purpose. The Federal rules restrict any use of the information to criminally investigate or prosecute any alcohol or drug abuse patient.The records that you are about to access may contain highly sensitive health information, the redisclosure of which is protected by Article 27-F of the [place] State Public Health law. If you continue you may have access to information: Regarding HIV / AIDS; Provided by facilities licensed or operated by the [facility] Office of Mental Health; or Provided by the [facility] Office for People With Developmental Disabilities. If such information is present, then the following [facility] mandated warning applies: This information has been disclosed to you from confidential records which are protected by state law. State law prohibits you from making any further disclosure of this information without the specific written consent of the person to whom it pertains, or as otherwise permitted by law. Any unauthorized further disclosure in violation of state law may result in a fine or prison sentence or both. A general authorization for the release of medical or other information is NOT sufficient authorization for further disc losure. Family History Family Member Name Family Member Gender Family Member Status Date o f Status Description Data Source(s) Unknown Male Problem [facility]ENT ([facility]) Unknown Male Problem [facility] ([facility]) Unknown Unknown Problem [facility] ([facility]) Encounters Encounter Providers Location Date Indications Data Source(s ) Outpatient Attender: Everardo PALMER 05/04/20 03:04:44 PM EDT - 05/04/2021 03:46:32 PM EDT [facility] ([facility] ) Outpatient Attender: Pérez Pollard 02/28 10:30:00 AM EDT [facility] ([facility] ) Outpatient Attender: Everardo PALMER 02/13/20 11:54:39 AM EDT - 02/12/2021 12:28:47 PM EDT [facility] ([facility] ) [place] [address] [address] 09/30/2020 12:00:00 AM EDT eCW1 ([facility]) Outpatient<td ID="encounterTypeDescripti onID0">COVID 19 IMM</td><td>Deborah Peoples RN</td><td>[facility]</td><td>08/28/2020</td><td>9:38AM</td><td>07/31/2020 11:59PM</td><td></td> Attender: Lexy Martinez RN [facility] 08/28/2020 09:38:00 AM EST - 07/31/2020 11:59:00 PM EST [facility] ([facility]) Outpatient Attender: Pérez Pollard 08/27 02:00:00 PM EST MEDENT ([facility] ) Outpatient Attender: Halle eFlix vishal 08/16/2020 11:15:00 AM EST [facility] ([facility]) Outpatient Attender: Halle Felix vishal 08/11/2020 02:00:00 PM EST [facility] ([facility]) Outpatient<td ID="encounterTypeDescripti onID1">COVID 19 IMM</td><td>Carter Barker DO</td><td>[facility]</td><td>07/31/2020</td><td>9:43AM</td><td>10:41AM</td><td></td> Attender: Carter Barker DO [facility] 07/31/2020 09:43:00 AM EST - 07/31/2020 10:41:00 AM EST [facility] ([facility]) Outpatient Attender: KATHARINA jalloh 06/18/2020 07:15:00 AM EST [facility] ([facility]) Immunizations Vaccine Date Status Description Data Source(s) Moderna COVID-19 08/28/2020 09:41:00 AM EST completed <td ID="Bmbokwxcslecx-Vuqhbeozlap-SF0">Moderna COVID-19</td><td ID="ImmunizationDose-1">2</td><td>08/28/2020</td><td ID="Euaiaepvzhrcd-DgpymNrmr-FY1">Left Deltoid</td><td></td><td ID="Yzgrokavjqhqj-Acvmre-EQ4">Complete (Administered)</td><td>[facility]</td><td ID="Tzwuxrovvcjep-Odnlk-Nxbs-Comment-ID1"></td> [facility] ([facility]) COVID-19 VACCINE a 08/28/2020 12:00:00 AM EST completed [facility] Vaccine Series Complete: YESThis Data wa s Submitted to [facility] Via [employer]. Moderna COVID-19 07/31/2020 09:50:00 AM EST completed <td ID="Arwwcgssjilte-Smgpomdtjnv-OA6"> COVID</td><td ID="ImmunizationDose-0">1</td><td>07/31/2020</td><td ID="Junxnpnktdyip-QhzbjAoja-ND2">Right Deltoid</td><td></td><td ID="Jhobkefnjihpo-Vditwg-ZO1">Complete (Administered)</td><td>[facility]</td><td ID="Qtymjgmntibpa-Pfhmk-Iuch-Comment-ID0"></td> [facility] ([facility]) COVID-19 VACCINE a 07/31/2020 12:00:00 AM EST completed [facility]SIIS Vaccine Series Complete: NOThis Data was Submitted to [facility] Via [employer]. Medications Medication Brand Name Start Date Product Form Dose Route Admi nistrative Instructions Pharmacy Instructions Status Indications Reaction Description Data Source(s) 20 mg 05/04/2021 12:00:00 AM EDT tablet 10 TAKE TWO TABLETS BY MOUTH EVERY MORNING FOR 5 DAYS TAKE TWO TABLETS BY MOUTH EVERY MORNING FOR 5 DAYS [facility] 60 mcg (15 mcg x 4)/0.5 mL 04/27/2021 12:00:00 AM EDT suspen mansi 0 USE DIRECTED USE DIRECTED SOLD: 04/27/2021 [facility] 200 mg 04/12/2021 12:00:00 AM EDT capsule 30 TAKE ONE CAPSULE BY MOUTH EVERY 8 HOURS NEEDED FOR 10 DAYS TAKE ONE CAPSULE BY MOUTH EVERY 8 HOURS NEEDED FOR 10 DAYS SOLD: 04/12/2021 [facility] 50 mg 03/15/2021 12:00:00 AM EDT tablet 90 TAKE ONE TABLET BY MOUTH EVERY DAY TAKE ONE TABLET BY MOUTH EVERY DAY SOLD: 03/16/2021 [facility] 0.25 mg 02/15/2021 12:00:00 AM EDT tablet 60 TAKE 2 TABLETS BY MOUTH BEFORE BED TAKE 2 TABLETS BY MOUTH BEFORE BED SOLD: 03/16/2021 [facility] 0.25 mg 02/15/2021 12:00:00 AM EDT tablet 60 TAKE 2 TABLETS BY MOUTH BEFORE BED TAKE 2 TABLETS BY MOUTH BEFORE BED SOLD: 04/11/2021 [facility] 0.25 mg 02/15/2021 12:00:00 AM EDT tablet 60 TAKE 2 TABLETS BY MOUTH BEFORE BED TAKE 2 TABLETS BY MOUTH BEFORE BED SOLD: 02/16/2021 [facility] Cyclobenzaprine hydrochloride 10 MG Oral Tablet CYCLOBENZAPR INE HCL 02/12/2021 12:00:00 AM EDT tablet 10 TAKE ONE TABLET BY MOUTH AT BEDTIME FOR 10 DAYS TAKE ONE TABLET BY MOUTH AT BEDTIME FOR 10 DAYS SOLD: 02/12/2021 [facility] 800 mg 02/12/2021 12:00:00 AM EDT tablet 30 TAKE ONE TABLET BY MOUTH THREE TIMES A DAY FOR 10 DAYS TAKE ONE TABLET BY MOUTH THREE TIMES A DAY FOR 10 DAYS SOLD: 02/12/2021 [facility] 20 mg 02/12/2021 12:00:00 AM EDT tablet 10 TAKE TWO TABLETS BY MOUTH EVERY DAY IN THE MORNING FOR 5 DAYS TAKE TWO TABLETS BY MOUTH EVERY DAY IN T HE MORNING FOR 5 DAYS SOLD: 02/12/2021 [facility] 25 mg 01/19/2021 12:00:00 AM EDT tablet 30 TAKE ONE TABLET BY MOUTH AT BEDTIME NEEDED FOR ANIEXTY TAKE ONE TABLET BY MOUTH AT BEDTIME N EEDED FOR ANIEXTY SOLD: 01/20/2021 [facility] Simvastatin 40 MG Oral Tablet Simvastatin 12/27/2020 12:00:00 AM EDT active MED[facility] ([facility]) 50 mg 12/24/2020 12:00:00 AM EDT tablet 90 TAKE ONE TABLET BY MOUTH EVERY DAY TAKE ONE TABLET BY MOUTH EVERY DAY SOLD: 12/24/2020 [facility] 0.25 mg 10/26/2020 12:00:00 AM EDT tablet 60 TAKE TWO TABLETS BY MOUTH BEFORE BED TAKE TWO TABLETS BY MOUTH BEFORE BED SOLD: 11/22/2020 [facility] 0.25 mg 10/26/2020 12:00:00 AM EDT tablet 60 TAKE TWO TABLETS BY MOUTH BEFORE BED TAKE TWO TABLETS BY MOUTH BEFORE BED SOLD: 12/23/2020 [facility] 0.25 mg 10/26/2020 12:00:00 AM EDT tablet 60 TAKE TWO TABLETS BY MOUTH BEFORE BED TAKE TWO TABLETS BY MOUTH BEFORE BED SOLD: 01/17/2021 [facility] 0.25 mg 10/26/2020 12:00:00 AM EDT tablet 60 TAKE TWO TABLETS BY MOUTH BEFORE BED TAKE TWO TABLETS BY MOUTH BEFORE BED SOLD: 10/26/2020 [facility] 40 mg 09/14/2020 12:00:00 AM EST capsule,delayed release (DR/EC) 90 TAKE ONE CAPSULE BY MOUTH EVERY DAY TAKE ONE CAPSULE BY MOUTH EVERY DAY SOLD: 03/13/2021 [facility] 40 mg 09/14/2020 12:00:00 AM EST capsule,delayed release (DR/EC) 90 TAKE ONE CAPSULE BY MOUTH EVERY DAY TAKE ONE CAPSULE BY MOUTH EVERY DAY SOLD: 12/07/2020 [facility] 40 mg 09/14/2020 12:00:00 AM EST capsule,delayed release (DR/EC) 90 TAKE ONE CAPSULE BY MOUTH EVERY DAY TAKE ONE CAPSULE BY MOUTH EVERY DAY SOLD: 09/15/2020 [facility] 875-125 mg 08/16/2020 12:00:00 AM EST tablet 20 TAKE ONE TABLET BY MOUTH TWICE A DAY FOR 10 DAYS TAKE ONE TABLET BY MOUTH TWICE A DAY FOR 10 DAYS SOLD: 08/16/2020 [facility] Amoxicillin 875 MG / Clavulanate 125 MG Oral Tablet Am oxicillin/Clavulanate Potassium 08/16/2020 12:00:00 AM EST ORAL active MEDENT ([facility]) 20 mg 08/11/2020 12:00:00 AM EST tablet 8 TAKE ONE TABLET BY MOUTH TWO TIMES A DAY FOR 4 DAYS TAKE ONE TABLET BY MOUTH TWO TIMES A DAY FOR 4 DAYS SO LD: 08/11/2020 [facility] Prednisone 20 MG Oral Tablet Prednisone 08/11/2020 12:00:00 AM EST completed MEDENT ([facility]) Covid-19 vaccine, Unspecified 07/31/2020 12:00:00 AM EST completed MEDENT ([facility]) Medication administered onsite 0.25 mg 06/24/2020 12:00:00 AM EST tablet 60 TAKE 2 TABLETS BY MOUTH BEFORE BED TAKE 2 TABLETS BY MOUTH BEFORE BED SOLD: 06/25/2020 [facility] 0.25 mg 06/24/2020 12:00:00 AM EST tablet 60 TAKE 2 TABLETS BY MOUTH BEFORE BED TAKE 2 TABLETS BY MOUTH BEFORE BED SOLD: 09/23/2020 [facility] 0.25 mg 06/24/2020 12:00:00 AM EST tablet 60 TAKE 2 TABLETS BY MOUTH BEFORE BED TAKE 2 TABLETS BY MOUTH BEFORE BED SOLD: 07/25/2020 [facility] 0.25 mg 06/24/2020 12:00:00 AM EST tablet 60 TAKE 2 TABLETS BY MOUTH BEFORE BED TAKE 2 TABLETS BY MOUTH BEFORE BED SOLD: 08/25/2020 [facility] Amoxicillin 875 MG / Clavulanate 125 MG Oral Tablet Am oxicillin/Clavulanate Potassium 06/18/2020 12:00:00 AM EST ORAL completed MEDENT ([facility]) 875-125 mg 06/18/2020 12:00:00 AM EST tablet 14 TAKE ONE TABLET BY MOUTH TWICE A DAY FOR 14 DAYS TAKE ONE TABLET BY MOUTH TWICE A DAY FOR 14 DAYS SOLD: 06/18/2020 [facility] 0.25 mg 02/23/2020 12:00:00 AM EDT tablet 60 TAKE 1 TABLET BY MOUTH ON DAYS 1 AND 2 ( 1-3 HOURS PRIOR TO BEDTIME ) THEN INCREASE TO 2 TABLETS A DAY TAKE 1 TABLET BY MOUTH ON DAYS 1 AND 2 ( 1-3 HOURS PRIOR TO BEDTIME ) THEN INCREASE TO 2 TABLETS A DAY SOLD: 05/26/2020 [facility] 0.25 mg 02/23/2020 12:00:00 AM EDT tablet 60 TAKE 1 TABLET BY MOUTH ON DAYS 1 AND 2 ( 1-3 HOURS PRIOR TO BEDTIME ) THEN INCREASE TO 2 TABLETS A DAY TAKE 1 TABLET BY MOUTH ON DAYS 1 AND 2 ( 1-3 HOURS PRIOR TO BEDTIME ) THEN INCREASE TO 2 TABLETS A DAY SOLD: 03/25/2020 [facility] 0.25 mg 02/23/2020 12:00:00 AM EDT tablet 60 TAKE 1 TABLET BY MOUTH ON DAYS 1 AND 2 ( 1-3 HOURS PRIOR TO BEDTIME ) THEN INCREASE TO 2 TABLETS A DAY TAKE 1 TABLET BY MOUTH ON DAYS 1 AND 2 ( 1-3 HOURS PRIOR TO BEDTIME ) THEN INCREASE TO 2 TABLETS A DAY SOLD: 04/24/2020 [facility] 50 mg 10/03/2019 12:00:00 AM EDT tablet 90 TAKE ONE TABLET BY MOUTH EVERY DAY TAKE ONE TABLET BY MOUTH EVERY DAY SOLD: 06/25/2020 [facility] 50 mg 10/03/2019 12:00:00 AM EDT tablet 90 TAKE ONE TABLET BY MOUTH EVERY DAY TAKE ONE TABLET BY MOUTH EVERY DAY SOLD: 09/23/2020 [facility] 50 mg 10/03/2019 12:00:00 AM EDT tablet 90 TAKE ONE TABLET BY MOUTH EVERY DAY TAKE ONE TABLET BY MOUTH EVERY DAY SOLD: 03/25/2020 [facility] 25 mg 09/18/2019 12:00:00 AM EST tablet 30 TAKE ONE TABLET BY MOUTH AT BEDTIME NEEDED FOR ANXIETY TAKE ONE TABLET BY MOUTH AT BEDTIME N EEDED FOR ANXIETY SOLD: 08/25/2020 [facility] 40 mg 09/18/2019 12:00:00 AM EST capsule,delayed release (DR/EC) 90 TAKE ONE CAPSULE BY MOUTH EVERY DAY TAKE ONE CAPSULE BY MOUTH EVERY DAY SOLD: 06/12/2020 [facility] 25 mg 09/18/2019 12:00:00 AM EST tablet 30 TAKE ONE TABLET BY MOUTH AT BEDTIME NEEDED FOR ANXIETY TAKE ONE TABLET BY MOUTH AT BEDTIME N EEDED FOR ANXIETY SOLD: 03/13/2020 [facility] 40 mg 09/18/2019 12:00:00 AM EST capsule,delayed release (DR/EC) 90 TAKE ONE CAPSULE BY MOUTH EVERY DAY TAKE ONE CAPSULE BY MOUTH EVERY DAY SOLD: 03/13/2020 [facility] Insurance Providers Payer name Policy type / Coverage type Policy ID Covered democrat ID Covered democrat's relationship to rdz Policy Rdz Plan Information [facility] (pr) Commercial [id number] Self [id number] [facility] ([facility] Commercial [id number] Self [id number] [facility] Health Care Commercial [employer] Co. [id number] Self [id number] [facility] O [id number] S [id number] [facility]-Commercial [id number] [facility] Commercial [id number] Self [id number] [facility] Commercial [id number] Self [id number] [facility] Commercial [id number] Self [id number] [facility] Commercial [id number] Self [id number] [facility] Commercial [id number] Self [id number] [facility] Commercial [id number] Self [id number] [facility] Commercial [id number] Self [id number] [facility] Commercial [id number] Self [id number] [facility] Healthcare Commercial Indemnity [id number] Self Inde mnity [facility] Commercial [id number] Self [facility] [id number] SP [id number] [facility] [id number] SP [id number] [facility] Other 0 [id number] Self 0 Problems, Conditions, and Diagnoses No Information Surgeries/Procedures Procedure Description Date Indications Data Source(s) PERIODIC PREVENTIVE MED EST PATIENT 40-64YRS 1 12:00:00 AM EDT [facility] ([facility]) Immunization Administration (includes Percutaneous, In babcock tester Immunization Administration (includes Percutaneous, Intrader 08/28/2020 12:00:00 AM EST [facility] ([facility]) Moderna COVID-19 Vaccine Moderna COVID-19 Vaccine 08/28/2020 12:00: 00 AM EST [facility] ([facility]) OFFICE OUTPATIENT VISIT 25 MINUTES 08/27/2020 12:00:00 AM EST [facility] Moderna COVID-19 Vaccine Moderna COVID-19 Vaccine 07/31/2020 12:00: 00 AM EST [facility] ([facility]) Moderna COVID19 Vaccine Administration First Dose Mode rna COVID19 Vaccine Administration First Dose 07/31/2020 12:00:00 AM EST [facility] Y ([facility]) Results ID Date Data Source [id number] 04/12/2021 05:45:00 PM EDT [facility] Name Value Range Interpretation Code Description Data Luz Marina rce(s) Supporting Document(s) SARS-CoV-2 RNA Resp Ql CHEYENNE+probe NOT DETECTED [facility] This lab was ordered by LACHELLE terrazas and reported by LACHELLE Ziegler. ID Date Data Source [id number] 02/22/2021 09:51:00 AM EDT [facility] ([facility]) Name Value Range Interpretation Code Description Data Luz Marina rce(s) Supporting Document(s) Cholesterol [Mass/volume] in Serum or Plasma 199 mg/dL 131-200 [facility] ([facility]) Cholesterol in HDL [Mass/volume] in Serum or Plasma 73 mg/dL 35-60 [facility] ([facility]) Triglyceride [Mass/volume] in Serum or Plasma 157 mg/dL 30-150 [facility] ([facility]) Cholesterol in LDL [Mass/volume] in Serum or Plasma by calcu lation 95 CALC 50-159 [facility] ([facility]) ID Date Data Source [id number] 02/22/2021 09:51:00 AM EDT [facility] ([facility]) Name Value Range Interpretation Code Description Data Luz Marina rce(s) Supporting Document(s) Glucose [Mass/volume] in Serum or Plasma 83 mg/dL 74-99 [facility] ([facility]) 100-125 mg/dL PRE-DIABETES/FASTING >126 mg/dL DIABETES/FASTING Urea nitrogen [Mass/volume] in Serum or Plasma 9 mg/dL 7-18 [facility] ([facility]) Creatinine 0.8 mg/dL 0.6-1.3 [facility] Sodium [Moles/volume] in Serum or Plasma 139 meq/L 136-145 [facility] ([facility]) Potassium [Moles/volume] in Serum or Plasma 4.3 meq/L 3.5-5.1 [facility] ([facility]) Chloride [Moles/volume] in Serum or Plasma 104 meq/L 98-107 [facility] ([facility]) Carbon dioxide, total [Moles/volume] in Serum or Plasma 27 meq/L 21 -32 [facility] ([facility]) Calcium [Mass/volume] in Serum or Plasma 8.9 mg/dL 8.5-10.1 [facility] ([facility]) Alkaline phosphatase isoenzyme [Units/volume] in Serum or Pl asma 67 mg/dL 46-116 [facility] ([facility]) Total Bilirubin 0.4 mg/dL 0.2-1.0 [facility] ([facility]) Aspartate aminotransferase [Enzymatic activity/volume] in Serum or Plasma 15 U/L 15-37 [facility] ([facility] ) Alanine aminotransferase [Enzymatic activity/volume] in Seru m or Plasma 26 U/L 12-78 [facility] ([facility]) Albumin [Mass/volume] in Serum or Plasma 3.0 g/dL 3.4-5.0 [facility] ([facility]) NOTE: RESULT VERIFIED. A/G Ratio 0.88 CALC 1.00-1.90 [facility] ([facility]) Proteinase 3 Ab [Units/volume] in Serum 6.4 g/dL 6.4-8.2 [facility] ([facility]) Glomerular filtration rate/1.73 sq M pre dicted among non-blacks [Volume Rate/Area] in Serum or Plasma by Creatinine-based formula (MDRD) Laboratory test result [facility] Glomerular filtration rate/1.73 sq M pre dicted among blacks [Volume Rate/Area] in Serum or Plasma by Creatinine-based formula (MDRD) Laboratory test result [facility] ([facility]) <content>CHRONIC KIDNEY DISEASE STAGING PER NKF</content>
<content></content>
<content>STAGE I & II GFR >= 60 NORMAL TO MILDLY DECREASED</content>
<content>STAGE III GFR 30-59 MODERATELY DECREASED</content>
<content>STAGE IV GFR 15-29 SEVERELY DECREASED</content>
<content>STAGE V GFR <15 VERY LITTLE GFR LEFT</content>
<content>ESRD GFR <15 ON MECHANICAL PROJECT MANAGER</content>
<content></content> ID Date Data Source [facility] DIGITAL / DANILO BILATERAL MAMMO SCREENING (Ultraso und if indicated) 09/30/2020 12:00:00 AM EDT [facility] ([facility]) Name Value Range Interpretation Code Description Data Luz Marina rce(s) Supporting Document(s) [facility] DIGITAL / DANILO BILAT ERAL MAMMO SCREENING (Ultrasound if indicated) [facility] ([facility]) ID Date Data Source [id number] 08/25/2020 07:44:00 AM EST [facility] ([facility]) Name Value Range Interpretation Code Description Data Luz Marina rce(s) Supporting Document(s) Thyrotropin [Units/volume] in Serum or Plasma by Detec tion limit <= 0.05 mIU/L 2.18 uIU/mL 0.36-3.74 [facility] ([facility] ) ID Date Data Source [id number] 08/25/2020 07:44:00 AM EST [facility] ([facility]) Name Value Range Interpretation Code Description Data Luz Marina rce(s) Supporting Document(s) Cholesterol in HDL [Mass/volume] in Serum or Plasma 64 mg/dL 35-60 [facility] ([facility]) Triglyceride [Mass/volume] in Serum or Plasma 134 mg/dL 30-150 [facility] ([facility]) Cholesterol [Mass/volume] in Serum or Plasma 204 mg/dL 131-200 [facility] ([facility]) Cholesterol in LDL [Mass/volume] in Serum or Plasma by calcu lation 113 CALC 50-159 [facility] ([facility]) ID Date Data Source [id number] 08/25/2020 07:44:00 AM EST [facility] ([facility]) Name Value Range Interpretation Code Description Data Luz Marina rce(s) Supporting Document(s) Glucose [Mass/volume] in Serum or Plasma 102 mg/dL 74-99 [facility] ([facility]) 100-125 mg/dL PRE-DIABETES/FASTING >126 mg/dL DIABETES/FASTING Urea nitrogen [Mass/volume] in Serum or Plasma 11 mg/dL 7-18 [facility] ([facility]) Creatinine 0.7 mg/dL 0.6-1.3 [facility] Sodium [Moles/volume] in Serum or Plasma 143 meq/L 136-145 [facility] ([facility]) Potassium [Moles/volume] in Serum or Plasma 4.1 meq/L 3.5-5.1 [facility] ([facility]) Carbon dioxide, total [Moles/volume] in Serum or Plasma 30 meq/L 21 -32 [facility] ([facility]) Calcium [Mass/volume] in Serum or Plasma 8.8 mg/dL 8.5-10.1 [facility] ([facility]) Chloride [Moles/volume] in Serum or Plasma 105 meq/L 98-107 [facility] ([facility]) Alkaline phosphatase isoenzyme [Units/volume] in Serum or Pl asma 75 mg/dL 46-116 [facility] ([facility]) Aspartate aminotransferase [Enzymatic activity/volume] in Serum or Plasma 15 U/L 15-37 [facility] ([facility] ) Alanine aminotransferase [Enzymatic activity/volume] in Seru m or Plasma 24 U/L 12-78 [facility] ([facility]) Total Bilirubin 0.5 mg/dL 0.2-1.0 [facility] ([facility]) Albumin [Mass/volume] in Serum or Plasma 3.2 g/dL 3.4-5.0 [facility] ([facility]) NOTE: RESULT VERIFIED. Proteinase 3 Ab [Units/volume] in Serum 6.9 g/dL 6.4-8.2 [facility] ([facility]) A/G Ratio 0.86 CALC 1.00-1.90 [facility] Glomerular filtration rate/1.73 sq M pre dicted among non-blacks [Volume Rate/Area] in Serum or Plasma by Creatinine-based formula (MDRD) Laboratory test result [facility] ([facility] ) Glomerular filtration rate/1.73 sq M pre dicted among blacks [Volume Rate/Area] in Serum or Plasma by Creatinine-based formula (MDRD) Laboratory test result [facility] ([facility]) <content>CHRONIC KIDNEY DISEASE STAGING PER NKF</content>
<content></content>
<content>STAGE I & II GFR >= 60 NORMAL TO MILDLY DECREASED</content>
<content>STAGE III GFR 30-59 MODERATELY DECREASED</content>
<content>STAGE IV GFR 15-29 SEVERELY DECREASED</content>
<content>STAGE V GFR <15 VERY LITTLE GFR LEFT</content>
<content>ESRD GFR <15 ON MECHANICAL PROJECT MANAGER</content>
<content></content> ID Date Data Source [id number] 08/16/2020 12:00:00 AM EST [facility] Name Value Range Interpretation Code Description Data Luz Marina rce(s) Supporting Document(s) SARS-CoV2 Rapid Antigen Negative [facility] This lab was reported by [facility] re. ID Date Data Source [id number] 08/11/2020 12:00:00 AM EST [facility] Name Value Range Interpretation Code Description Data Luz Marina rce(s) Supporting Document(s) SARS coronavirus 2 Ag Negative [facility] This lab was ordered by [facility] and reported by [facility]. Procedure Social History Code Duration Value Status Description Data Source(s ) Smoking 09/30/2020 12:00:00 AM EDT Never Smoker completed Never S moker eCW1 ([facility]) Smoking 06/18/2020 12:00:00 AM EST Patient has never smoked co mpleted Patient has never smoked [facility] ([facility], [facility]) Vital Signs ID Date Data Source UNK Name Value Range Interpretation Code Description Data Source(s) Systolic blood pressure 136 mm[Hg] 136 mm[Hg] M EDENT ([facility]) Body weight 287.00 [lb_av] 287.00 [lb_av] MED[facility] T ([facility]) Body mass index (BMI) [Ratio] 47.0 kg/m2 47.0 k g/m2 [facility] ([facility]) Heart rate 78 /min 78 /min [facility] ([facility]) Diastolic blood pressure 82 mm[Hg] 82 mm[Hg] [facility] ([facility]) Body height 65.50 [in_i] 65.50 [in_i] [facility] ([facility]) 5'5.50" Body weight 293 [lb_av] 293 [lb_av] W1 ([facility]) Body weight 132.9 kg 132.9 kg W1 ([facility]) Body height 65 [in_i] 65 [in_i] eCW1 ([facility]) Body mass index (BMI) [Ratio] 48.75 kg/m2 48.75 kg/m2 eCW1 ([facility]) Systolic blood pressure 154 mm[Hg] 154 mm[Hg] e CW1 ([facility]) Diastolic blood pressure 92 mm[Hg] 92 mm[Hg] eCW1 ([facility]) Diastolic blood pressure 88 mm[Hg] 88 mm[Hg] [facility] ([facility]) Systolic blood pressure 132 mm[Hg] 132 mm[Hg] M EDENT ([facility]) Heart rate 70 /min 70 /min [facility] ([facility] Body height 65.50 [in_i] 65.50 [in_i] [facility] ([facility]) 5'5.50" Body weight 291.00 [lb_av] 291.00 [lb_av] MEDEN T ([facility]) Body mass index (BMI) [Ratio] 47.7 kg/m2 47.7 k g/m2 [facility] ([facility]) Systolic blood pressure 146 mm[Hg] 146 mm[Hg] M EDENT ([facility], [facility]) Diastolic blood pressure 82 mm[Hg] 82 mm[Hg] [facility] ([facility], [facility]) Heart rate 76 /min 76 /min [facility] ([facility], [facility]) Respiratory rate 16 /min 16 /min [facility] ( [facility], [facility]) Oxygen saturation in Arterial blood by Pulse oximetry 99 % 99 % [facility] ([facility], [facility]) Body temperature 98.3 [degF] 98.3 [degF] [facility] ([facility], [facility]) Body weight 290.00 [lb_av] 290.00 [lb_av] MEDEN T ([facility], [facility]) Body height 65 [in_i] 65 [in_i] [facility] ([facility], [facility]) 5'5" Body mass index (BMI) [Ratio] 48.3 kg/m2 48.3 k g/m2 [facility] ([facility], [facility]) Heart rate 78 /min 78 /min [facility] ([facility], [facility]) Respiratory rate 16 /min 16 /min [facility] ( [facility], [facility]) Body weight 190.00 [lb_av] 190.00 [lb_av] MEDEN T ([facility], [facility]) Body height 65 [in_i] 65 [in_i] [facility] ([facility], [facility]) 5'5" Body mass index (BMI) [Ratio] 31.6 kg/m2 31.6 k g/m2 [facility] ([facility], [facility]) Oxygen saturation in Arterial blood by Pulse oximetry 99 % 99 % [facility] ([facility], [facility]) Body temperature 98.7 [degF] 98.7 [degF] [facility] ([facility], [facility]) Diastolic blood pressure 90 mm[Hg] 90 mm[Hg] [facility] ([facility], [facility]) Systolic blood pressure 146 mm[Hg] 146 mm[Hg] M EDENT ([facility], [facility]) Body height 65 [in_i] 65 [in_i] [facility] ([facility], [facility]) 5'5" Body mass index (BMI) [Ratio] 45.8 kg/m2 45.8 k g/m2 [facility] ([facility], [facility]) Systolic blood pressure 149 mm[Hg] 149 mm[Hg] [facility] ([facility], [facility]) Diastolic blood pressure 88 mm[Hg] 88 mm[Hg] [facility] ([facility], [facility]) Body temperature 98.7 [degF] 98.7 [degF] [facility] ([facility]) Heart rate 96 /min 96 /min [facility] ([facility], [facility]) Respiratory rate 16 /min 16 /min [facility] ( [facility], [facility]) Oxygen saturation in Arterial blood by Pulse oximetry 99 % 99 % [facility] ([facility]) Body weight 275.00 [lb_av] 275.00 [lb_av] MADISON[facility] T ([facility], [facility])
[2021-05-10] MEDS ORDERED: ROPI0.253 (16:34)
[2021-05-10] MEDS ORDERED: HYDR-3363 (16:34)
[2021-05-10] MEDS ORDERED: SERT50TA29 (16:34)
--- NOTE | 2021-05-10 17:01 | REP ---
INDICATION: cough. COMPARISON: 08/15/2019 the latest prior portable exam TECHNIQUE: PA and lateral views FINDINGS: The superior mediastinal structures are midline. The cardiac silhouette is unremarkable in size, shape, and position. The diaphragmatic surfaces of the lungs are regular, and the costophrenic angles are clear. The pulmonary armstrong are clear. The imaged osseous structures are intact. IMPRESSION: There is no acute cardiopulmonary disease. <Electronically signed by Jassi Frank > 05/10/21 [id number]
[2021-05-10 17:24] LABS: BASO # 0.1 10^3/uL (0.0-0.2); BASO % 0.6 % (0.0-1.0); EOS # 0.2 10^3/uL (0.0-0.5); EOS % 1.2 % (0.0-3.0); HEMATOCRIT 41.4 % (36.0-47.0); HEMOGLOBIN 13.6 g/dl (12.0-15.5); LYMPH % 27.4 % (24.0-44.0); MEAN CORPUSCULAR HEMOGLOBIN 28.9 pg (27.0-33.0); MEAN CORPUSCULAR HGB CONC 32.9 g/dl (32.0-36.5); MEAN CORPUSCULAR VOLUME 88.1 fl (80.0-96.0); MONO # 0.9 10^3/uL (0.0-0.8); MONO % 6.3 % (2.0-8.0); NEUTROPHILS # 9.4 10^3/uL (1.5-8.5); PLATELET COUNT, AUTOMATED 405 10^3/uL (150-450); WHITE BLOOD COUNT 14.7 10^3/uL (4.0-10.0)
[2021-05-10 17:51] LABS: BLOOD UREA NITROGEN 14 MG/DL (7-18); CALCIUM LEVEL 9.4 MG/DL (8.5-10.1); CARBON DIOXIDE LEVEL 28 MEQ/L (21-32); CHLORIDE LEVEL 106 MEQ/L (98-107); CREATININE FOR GFR 0.91 MG/DL (0.55-1.30); GLOMERULAR FILTRATION RATE > 60.0 (>58); GLUCOSE, FASTING 89 MG/DL (70-100); POTASSIUM SERUM 3.8 MEQ/L (3.5-5.1); SODIUM LEVEL 138 MEQ/L (136-145)
[2021-05-10 18:07] LABS: MONO SCRN NEGATIVE (NEGATIVE)
--- OUTSIDE RECORDS SUMMARY | 2021-05-10 18:09 | CCD ---
Author Author [facility] Organization [facility] Address Unknown Phone Unavailable Care Team Providers Care Stitch Bonding Machine Drawer In Name Role Phone Maring, Everardo PA Unavailable [...] Maring, Everardo PA Unavailable Unavailable Gastelum, Halle CONCRETE STONE FINISHING SUPERVISOR Unavailable Unavailable Gastelum, Halle CONCRETE STONE FINISHING SUPERVISOR Unavailable Unavailable Gastelum, Halle CONCRETE STONE FINISHING SUPERVISOR Unavailable Unavailable Gastelum, Halle CONCRETE STONE FINISHING SUPERVISOR Unavailable Unavailable Gastelum, Halle CONCRETE STONE FINISHING SUPERVISOR Unavailable Unavailable Gastelum, Halle CONCRETE STONE FINISHING SUPERVISOR Unavailable Unavailable Gastelum, Halle CONCRETE STONE FINISHING SUPERVISOR Unavailable Unavailable Gastelum, Halle CONCRETE STONE FINISHING SUPERVISOR Unavailable Unavailable Gastelum, Halle CONCRETE STONE FINISHING SUPERVISOR Unavailable Unavailable Gastelum, Halle CONCRETE STONE FINISHING SUPERVISOR Unavailable Unavailable Gastelum, Halle CONCRETE STONE FINISHING SUPERVISOR Unavailable Unavailable Gastelum, Halle CONCRETE STONE FINISHING SUPERVISOR Unavailable Unavailable Gastelum, Halle CONCRETE STONE FINISHING SUPERVISOR Unavailable Unavailable Carol Bass MD Unavailable Unavailable [...] Unavailable CarguelloTolu Carter DO Unavailable Unavailable CarguelloTolu Cartre DO Unavailable Unavailable CarguelloTolu Carter DO Unavailable [...] is protected by Article 27-F of the [place] State Public Health law. If you continue you may have access to information: Regarding HIV / AIDS; Provided by facilities licensed or operated by the [facility] Office of Mental Health; or Provided by the [facility] for People With Developmental Disabilities. If such information is present, then the following [facility] mandated warning applies: This information has been [...] law may result in a fine or usp sentence or both. A general authorization for the release of medical or other information is NOT sufficient authorization for further disc losure. Family History Family Member Name Family Member Gender Family Member Status Date o f Status Description Data Source(s) Unknown Male Problem MEDENT ([facility]) Unknown Male Problem [facility] ([facility]) Unknown Unknown Problem [facility] Encounters Encounter Providers Location Date Indications Data Source(s ) Outpatient Attender: Everardo PALMER 05/04/20 03:04:44 PM EDT - 05/04/2021 03:46:32 PM EDT [facility] ([facility] ) Outpatient Attender: Pérez Pollard 02/28 10:30:00 AM EDT MEDENT ([facility] ) Outpatient Attender: Everardo PALMER 02/13/20 11:54:39 AM EDT - 02/12/2021 12:28:47 PM EDT [facility] ([facility] ) Outpatient [address] [facility] [address] 09/30/2020 12:00:00 AM EDT eCW1 (Critical access hospital) <td ID="encounterTypeDescriptionID0">COV ID 19 IMM</td><td>Deborah Peoples RN</td><td>[facility]</td><td>08/28/2020</td><td>9:38AM</td><td>07/31/2020 11:59PM</td><td></td>Outpatient Attender: Lexy Martinez RN [facility] 08/28/2020 09:38:00 AM EST - 07/31/2020 11:59:00 PM EST HERBIE ([facility]) Outpatient Attender: Pérez Pollard 08/27 02:00:00 PM EST MEDENT ([facility] ) Outpatient Attender: Halle Felix vishal 08/16/2020 11:15:00 AM EST MEDENT ([facility]) Outpatient Attender: Halle rodgers 08/11/2020 02:00:00 PM EST MEDENT ([facility]) Outpatient<td ID="encounterTypeDescripti onID1">COVID 19 IMM</td><td>Carter Barker DO</td><td>[facility]</td><td>07/31/2020</td><td>9:43AM</td><td>10:41AM</td><td></td> Attender: Carter Barker DO [facility] 07/31/2020 09:43:00 AM EST - 07/31/2020 10:41:00 AM EST HERBIE ([facility]) Outpatient Attender: KATHARINA jalloh 06/18/2020 07:15:00 AM EST MEDENT ([facility]) Immunizations Vaccine Date Status Description Data Source(s) Moderna COVID-19 08/28/2020 09:41:00 AM EST completed <td ID="Sqqnbuwwegvif-Kpoyactjoki-GJ1">Moderna COVID-19</td><td ID="ImmunizationDose-1">2</td><td>08/28/2020</td><td ID="Xpihxeazbdyec-KbtxmFmsk-GZ8">Left Deltoid</td><td></td><td ID="Xfoevenqbcqhl-Qxjnle-WO3">Complete (Administered)</td><td>[facility]</td><td ID="Mubouuxlsdocb-Qhqxx-Arcl-Comment-ID1"></td> HERBIE ([facility]) COVID-19 VACCINE a 08/28/2020 12:00:00 AM EST completed [facility]IS Vaccine Series Complete: YESThis Data wa s Submitted to [facility] Via [facility]. Moderna COVID-19 07/31/2020 09:50:00 AM EST completed <td ID="Prgfnyomuusql-Eegiwrfkzth-KI2"> COVID</td><td ID="ImmunizationDose-0">1</td><td>07/31/2020</td><td ID="Tfvrxaugkrbcf-QlheyCkrx-UW4">Right Deltoid</td><td></td><td ID="Ueebhicclftrz-Pvkprr-SH8">Complete (Administered)</td><td>[facility]</td><td ID="Fbagxjcskaomi-Fydhl-Hmpf-Comment-ID0"></td> [facility]BIE ([facility] COVID-19 VACCINE a 07/31/2020 12:00:00 AM EST completed NDSIIS Vaccine Series Complete: NOThis Data was Submitted to [facility] Via [facility]. Medications Medication Brand Name Start Date Product [...] 08/16/2020 12:00:00 AM EST ORAL active MEDENT ([facility]) 20 mg 08/11/2020 12:00:00 AM EST tablet 8 TAKE ONE TABLET BY MOUTH TWO TIMES A DAY FOR 4 DAYS TAKE ONE TABLET BY MOUTH TWO TIMES A DAY FOR 4 DAYS SO LD: 08/11/2020 [facility] Prednisone 20 MG Oral Tablet Prednisone 08/11/2020 12:00:00 AM EST completed MEDENT ([facility]) Covid-19 vaccine, Unspecified 07/31/2020 12:00:00 AM EST completed [facility] ([facility]) Medication administered onsite 0.25 mg 06/24/2020 12:00:00 [...] 06/18/2020 12:00:00 AM EST ORAL completed MEDENT ([facility]) 875-125 mg 06/18/2020 12:00:00 AM EST tablet [...] relationship to rdz Policy Rdz Plan Information [facility] (pr) Commercial [id number] Self [id number] [facility] (pr) Commercial [id number] Self [id number] [facility] Health Care Commercial Insurance Co. [id number] Self [id number] [facility] O [id number] S [id number] [facility]-Commercial [id number] [facility] Commercial [id number] Self [id number] [facility] Commercial [id number] Self [id number] [facility] Commercial [id number] Self [id number] [facility] Commercial [id number] Self [id number] [facility] Commercial [id number] Self [id number] [facility] Commercial [id number] Self [id number] [facility] Commercial [id number] Self [id number] [facility] Commercial [id number] Self [id number] [facility] Healthcare Commercial Indemnity [id number] Self Inde mnity [facility] Commercial [id number] Self [facility] PH[facility] [id number] SP [id number] [facility] [id number] SP [id number] [facility] Other 0 [id number] Self 0 Problems, Conditions, and Diagnoses No Information Surgeries/Procedures Procedure Description Date Indications Data Source(s) PERIODIC PREVENTIVE MED EST PATIENT 40-64YRS 1 12:00:00 AM EDT [facility] Immunization Administration (includes Percutaneous, In swatch paster Immunization Administration (includes Percutaneous, Intrader 08/28/2020 12:00:00 AM EST HERBIE ([facility]) Moderna COVID-19 Vaccine Moderna COVID-19 Vaccine 08/28/2020 12:00: 00 AM EST S[facility]ERSET ([facility]) OFFICE OUTPATIENT VISIT 25 MINUTES 08/27/2020 12:00:00 AM EST [facility] Moderna COVID-19 Vaccine Moderna COVID-19 Vaccine 07/31/2020 12:00: 00 AM EST HERBIE ([facility]) Moderna COVID19 Vaccine Administration First Dose Mode rna COVID19 Vaccine Administration First Dose 07/31/2020 12:00:00 AM EST GREENIN Y ([facility]) Results ID Date Data Source [id number] 04/12/2021 05:45:00 PM EDT [facility] Name Value Range Interpretation Code Description Data Luz Marina rce(s) Supporting Document(s) SARS-CoV-2 RNA Resp Ql CHEYENNE+probe NOT DETECTED [facility] This lab was ordered by LACHELLE terrazas and reported by LACHELLE Ziegler. ID Date Data Source [id number] 02/22/2021 09:51:00 AM EDT [facility]) Name Value Range Interpretation Code Description Data Luz Marina rce(s) Supporting Document(s) Cholesterol [Mass/volume] in Serum or Plasma 199 mg/dL 131-200 MEDENT ([facility]) Cholesterol in HDL [Mass/volume] in Serum or Plasma 73 mg/dL 35-60 [facility] ([facility]) Triglyceride [Mass/volume] in Serum or Plasma 157 mg/dL 30-150 MED[facility] ([facility]) Cholesterol in LDL [Mass/volume] in Serum or Plasma by calcu lation 95 CALC 50-159 [facility] ([facility]) ID Date Data Source [id number] 02/22/2021 09:51:[address] AM EDT [facility] ([facility]) Name Value Range Interpretation Code Description Data Luz Marina rce(s) Supporting Document(s) Glucose [Mass/volume] in Serum or Plasma 83 mg/dL 74-99 MEDENT ([facility]) 100-125 mg/dL PRE-DIABETES/FASTING >126 mg/dL DIABETES/FASTING Urea nitrogen [Mass/volume] in Serum or Plasma 9 mg/dL 7-18 MED[facility] ([facility]) Creatinine 0.8 mg/dL 0.6-1.3 [facility] Sodium [Moles/volume] in Serum or Plasma 139 meq/L 136-145 MED[facility] ([facility]) Potassium [Moles/volume] in Serum or Plasma 4.3 meq/L 3.5-5.1 MED[facility] ([facility]) Chloride [Moles/volume] in Serum or Plasma 104 meq/L 98-107 [facility] ([facility]) Carbon dioxide, total [Moles/volume] in Serum or Plasma 27 meq/L 21 -32 [facility] ([facility]) Calcium [Mass/volume] in Serum or Plasma 8.9 mg/dL 8.5-10.1 [facility] ([facility]) Alkaline phosphatase isoenzyme [Units/volume] in Serum or Pl asma 67 mg/dL 46-116 [facility] ([facility]) Total Bilirubin 0.4 mg/dL 0.2-1.0 MEDENT ([facility]) Aspartate aminotransferase [Enzymatic activity/volume] in Serum or Plasma 15 U/L 15-37 MED[facility] ([facility] ) Alanine aminotransferase [Enzymatic activity/volume] in Seru m or Plasma 26 U/L 12-78 MED[facility] ([facility]) Albumin [Mass/volume] in Serum or Plasma 3.0 g/dL 3.4-5.0 MEDENT ([facility]) NOTE: RESULT VERIFIED. A/G Ratio 0.88 CALC 1.00-1.90 [facility] ([facility]) Proteinase 3 Ab [Units/volume] in Serum 6.4 g/dL 6.4-8.2 MEDENT ([facility]) Glomerular filtration rate/1.73 sq M pre dicted among non-blacks [Volume Rate/Area] in Serum or Plasma by Creatinine-based formula (MDRD) Laboratory test result [facility] Glomerular filtration rate/1.73 sq M pre dicted among blacks [Volume Rate/Area] in Serum or Plasma by Creatinine-based formula (MDRD) Laboratory test result [facility] ([facility]) <content>CHRONIC KIDNEY DISEASE STAGING PER NKF</content>
<content></content>
<content>STAGE I & II GFR >= 60 NORMAL TO MILDLY DECREASED</content>
<content>STAGE III GFR 30-59 MODERATELY DECREASED</content>
<content>STAGE IV GFR 15-29 SEVERELY DECREASED</content>
<content>STAGE V GFR <15 VERY LITTLE GFR LEFT</content>
<content>ESRD GFR <15 ON GRAPHIC ART TECHNICIAN</content>
<content></content> ID Date Data Source [facility] DIGITAL / DANILO BILATERAL MAMMO SCREENING (Ultraso und if indicated) 09/30/2020 12:00:00 AM EDT [facility] ([facility]) Name Value Range Interpretation Code Description Data Luz Marina rce(s) Supporting Document(s) [facility] DIGITAL / DANILO BILAT ERAL MAMMO SCREENING (Ultrasound if indicated) [facility] ([facility]) ID Date Data Source [id number] 08/25/2020 07:44:00 AM EST MEDENT ([facility]) Name Value Range Interpretation Code Description Data Luz Marina rce(s) Supporting Document(s) Thyrotropin [Units/volume] in Serum or Plasma by Detec tion limit <= 0.05 mIU/L 2.18 uIU/mL 0.36-3.74 [facility] ([facility] ) ID Date Data Source [id number] 08/25/2020 07:44:00 AM EST MEDENT ([facility]) Name Value Range Interpretation Code Description Data Luz Marina rce(s) Supporting Document(s) Cholesterol in HDL [Mass/volume] in Serum or Plasma 64 mg/dL 35-60 MEDENT ([facility]) Triglyceride [Mass/volume] in Serum or Plasma 134 mg/dL 30-150 MED[facility] ([facility]) Cholesterol [Mass/volume] in Serum or Plasma 204 mg/dL 131-200 MED[facility] ([facility]) Cholesterol in LDL [Mass/volume] in Serum or Plasma by calcu lation 113 CALC 50-159 [facility] ([facility]) ID Date Data Source [id number] 08/25/2020 07:44:00 AM EST MEDENT ([facility]) Name Value Range Interpretation Code Description Data Luz Marina rce(s) Supporting Document(s) Glucose [Mass/volume] in Serum or Plasma 102 mg/dL 74-99 MEDENT ([facility]) 100-125 mg/dL PRE-DIABETES/FASTING >126 mg/dL DIABETES/FASTING Urea nitrogen [Mass/volume] in Serum or Plasma 11 mg/dL 7-18 MED[facility] ([facility]) Creatinine 0.7 mg/dL 0.6-1.3 [facility] Sodium [Moles/volume] in Serum or Plasma 143 meq/L 136-145 [facility] ([facility]) Potassium [Moles/volume] in Serum or Plasma 4.1 meq/L 3.5-5.1 [facility] ([facility]) Carbon dioxide, total [Moles/volume] in Serum or Plasma 30 meq/L 21 -32 [facility] ([facility]) Calcium [Mass/volume] in Serum or Plasma 8.8 mg/dL 8.5-10.1 [facility] ([facility]) Chloride [Moles/volume] in Serum or Plasma 105 meq/L 98-107 [facility] ([facility]) Alkaline phosphatase isoenzyme [Units/volume] in Serum or Pl asma 75 mg/dL 46-116 [facility] ([facility]) Aspartate aminotransferase [Enzymatic activity/volume] in Serum or Plasma 15 U/L 15-37 [facility] ([facility] ) Alanine aminotransferase [Enzymatic activity/volume] in Seru m or Plasma 24 U/L 12-78 [facility] ([facility]) Total Bilirubin 0.5 mg/dL 0.2-1.0 MEDENT ([facility]) Albumin [Mass/volume] in Serum or Plasma 3.2 g/dL 3.4-5.0 [facility] ([facility]) NOTE: RESULT VERIFIED. Proteinase 3 Ab [Units/volume] in Serum 6.9 g/dL 6.4-8.2 [facility] ([facility]) A/G Ratio 0.86 CALC 1.00-1.90 [facility] Glomerular filtration rate/1.73 sq M pre dicted among non-blacks [Volume Rate/Area] in Serum or Plasma by Creatinine-based formula (MDRD) Laboratory test result MED[facility] ([facility] ) Glomerular filtration rate/1.73 sq M pre dicted among blacks [Volume Rate/Area] in Serum or Plasma by Creatinine-based formula (MDRD) Laboratory test result [facility] ([facility]) <content>CHRONIC KIDNEY DISEASE STAGING PER NKF</content>
<content></content>
<content>STAGE I & II GFR >= 60 NORMAL TO MILDLY DECREASED</content>
<content>STAGE III GFR 30-59 MODERATELY DECREASED</content>
<content>STAGE IV GFR 15-29 SEVERELY DECREASED</content>
<content>STAGE V GFR <15 VERY LITTLE GFR LEFT</content>
<content>ESRD GFR <15 ON GRAPHIC ART TECHNICIAN</content>
<content></content> ID Date Data Source [id number] 08/16/2020 12:00:00 AM EST [facility] Name Value Range Interpretation Code Description Data Luz Marina rce(s) Supporting Document(s) SARS-CoV2 Rapid Antigen Negative [facility] This lab was reported by [facility] re. ID Date Data Source [id number] 08/11/2020 12:00:00 AM EST [facility] Name Value Range Interpretation Code Description Data Luz Marina rce(s) Supporting Document(s) SARS coronavirus 2 Ag Negative [facility] This lab was ordered by [facility] and reported by [facility]. Procedure Social History Code Duration Value Status Description Data Source(s ) Smoking 09/30/2020 12:00:00 AM EDT Never Smoker completed Never S moker [facility]CW1 ([facility] Smoking 06/18/2020 12:00:00 AM EST Patient has never smoked co mpleted Patient has never smoked MEDENT ([facility]) Vital Signs ID Date Data Source UNK Name Value Range Interpretation Code Description Data Source(s) Heart rate 78 /min 78 /min MEDENT ([facility]) Systolic blood pressure 136 mm[Hg] 136 mm[Hg] M EDENT ([facility]) Body weight 287.00 [lb_av] 287.00 [lb_av] MEDEN T ([facility]) Body mass index (BMI) [Ratio] 47.0 kg/m2 47.0 k g/m2 MED[facility] ([facility]) Diastolic blood pressure 82 mm[Hg] 82 mm[Hg] [facility] ([facility]) Body height 65.50 [in_i] 65.50 [in_i] MEDENT ([facility]) 5'5.50" Body weight 293 [lb_av] 293 [lb_av] W1 ([facility]) Body weight 132.9 kg 132.9 kg eCW1 ([facility]) Body height 65 [in_i] 65 [in_i] eCW1 ([facility]) Body mass index (BMI) [Ratio] 48.75 kg/m2 48.75 kg/m2 [facility]CW1 [facility] Systolic blood pressure 154 mm[Hg] 154 mm[Hg] e CW1 ([facility]) Diastolic blood pressure 92 mm[Hg] 92 mm[Hg] eCW1 ([facility]) Diastolic blood pressure 88 mm[Hg] 88 mm[Hg] MEDENT ([facility]) Systolic blood pressure 132 mm[Hg] 132 mm[Hg] M EDENT ([facility]) Heart rate 70 /min 70 /min MEDENT ([facility]) Body height 65.50 [in_i] 65.50 [in_i] MEDENT ([facility]) 5'5.50" Body weight 291.00 [lb_av] 291.00 [lb_av] MEDEN T ([facility]) Body mass index (BMI) [Ratio] 47.7 kg/m2 47.7 k g/m2 MEDENT ([facility]) Systolic blood pressure 146 mm[Hg] 146 mm[Hg] M EDENT ([facility], [facility]) Diastolic blood pressure 82 mm[Hg] 82 mm[Hg] MEDENT ([facility], [facility]) Oxygen saturation in Arterial blood by Pulse oximetry 99 % 99 % MEDENT ([facility], [facility]) Body weight 290.00 [lb_av] 290.00 [lb_av] MEDEN T ([facility], [facility]) Heart rate 76 /min 76 /min [facility] Respiratory rate 16 /min 16 /min MEDENT ( [facility], [facility]) Body temperature 98.3 [degF] 98.3 [degF] MEDENT ([facility], [facility]) Body height 65 [in_i] 65 [in_i] [facility]) 5'5" Body mass index (BMI) [Ratio] 48.3 kg/m2 48.3 k g/m2 [facility] ([facility]) Oxygen saturation in Arterial blood by Pulse oximetry 99 % 99 % MEDENT ([facility], [facility]) Heart rate 78 /min 78 /min [facility] ([facility]) Respiratory rate 16 /min 16 /min MED[facility] ( [facility], [facility]) Body weight 190.00 [lb_av] 190.00 [lb_av] MEDEN T ([facility], [facility]) Body height 65 [in_i] 65 [in_i] MEDENT ([facility], [facility]) 5'5" Body mass index (BMI) [Ratio] 31.6 kg/m2 31.6 k g/m2 MEDENT ([facility], [facility]) Body temperature 98.7 [degF] 98.7 [degF] [facility] ([facility], [facility]) Diastolic blood pressure 90 mm[Hg] 90 mm[Hg] MEDENT ([facility], [facility]) Systolic blood pressure 146 mm[Hg] 146 mm[Hg] M EDENT ([facility], [facility]) Body height 65 [in_i] 65 [in_i] MEDENT ([facility], [facility]) 5'5" Body mass index (BMI) [Ratio] 45.8 kg/m2 45.8 k g/m2 [facility] ([facility], [facility]) Systolic blood pressure 149 mm[Hg] 149 mm[Hg] [facility] ([facility], [facility]) Diastolic blood pressure 88 mm[Hg] 88 mm[Hg] [facility] ([facility]) Body temperature 98.7 [degF] 98.7 [degF] [facility] ([facility]) Heart rate 96 /min 96 /min [facility] ([facility], [facility]) Respiratory rate 16 /min 16 /min [facility] ( [facility]) Oxygen saturation in Arterial blood by Pulse oximetry 99 % 99 % [facility] ([facility]) Body weight 275.00 [lb_av] 275.00 [lb_av] MEDEN T ([facility], [facility])
[2021-05-10 18:30] VITALS: BP 160/78
== END 2021-05-10 18:53 | disposition home or self-care (01) ==
LOC: M ED 16:24
DX: J04.0 Acute laryngitis (principal); B34.8 Other viral infections of unspecified site; I10 Essential (primary) hypertension; E78.00 Pure hypercholesterolemia, unspecified; Z79.899 Other long term (current) drug therapy; Z79.3 Long term (current) use of hormonal contraceptives; Z88.2 Allergy status to sulfonamides

== ENCOUNTER → 2021-07-11 | Outpatient (CLI) | payer OTHER ==
[~2021-07-11] MED LIST changes: +HYDR-3363; +LOSA25TA13 PO; -LOSA25TA14 PO; +ROPI0.253; +SERT50TA29
== END ==
LOC: M PLAIMG 10:52
PROVIDERS: ATTEND Internal Medicine
DX: M54.16 Radiculopathy, lumbar region (principal); M51.36 Other intervertebral disc degeneration, lumbar region; M51.37 Other intervertebral disc degeneration, lumbosacral region; M47.816 Spondylosis without myelopathy or radiculopathy, lumbar region; M51.27 Other intervertebral disc displacement, lumbosacral region

== ENCOUNTER → 2021-08-29 | Outpatient (CLI) | payer OTHER | LOC: M PAIN 13:00 | PROVIDERS: ATTEND Nurse Practitioner Family | DX: M51.16 Intervertebral disc disorders with radiculopathy, lumbar region (principal); L70.9 Acne, unspecified; E78.00 Pure hypercholesterolemia, unspecified; I10 Essential (primary) hypertension; L30.9 Dermatitis, unspecified; K21.9 Gastro-esophageal reflux disease without esophagitis; E66.9 Obesity, unspecified; Z68.42 Body mass index [BMI] 45.0-49.9, adult; Z79.899 Other long term (current) drug therapy; Z88.2 Allergy status to sulfonamides ==

== ENCOUNTER → 2021-12-05 | Outpatient (CLI) | payer OTHER | LOC: M LABSMTC 09:18 | PROVIDERS: ATTEND Anesthesiology | DX: Z01.818 Encounter for other preprocedural examination (principal); Z11.52 Encounter for screening for COVID-19 ==

== ENCOUNTER → 2021-12-09 | Outpatient (CLI) | payer OTHER ==
[~2021-12-09] MED LIST changes: +ALLE24TA7 PO; +CYCL5TAB PO; +EUCR2OIN EX; +ISOVUE-M 300 61% 15ML VIAL As Ordered ONE; +LIDOCAINE 1% SDV 30ML VIAL As Ordered ONE; +NAPR220C14 PO; +NORCO, ANEXSIA 5/325MG TABLET (HYDROcodone/ACETAMINOPHEN) As Ordered ONE; +TRAM50TA2 PO; +VITMTA PO; +diazePAM 5MG TABLET As Ordered ONE; +methylPREDNISolone SUSP 40MG/ML 1ML VIAL (DEPO MEDROL) As Ordered ONE
[2021-12-09 11:00] VITALS: BP 183/82
== END ==
LOC: M IRPRO 09:15
PROVIDERS: ATTEND Anesthesiology
DX: M51.16 Intervertebral disc disorders with radiculopathy, lumbar region (principal); G89.29 Other chronic pain; I10 Essential (primary) hypertension; Z88.2 Allergy status to sulfonamides; Z86.59 Personal history of other mental and behavioral disorders
CPT/HCPCS: 62323; J1030; Q9967

== ENCOUNTER → 2022-02-27 | Outpatient (CLI) | payer OTHER ==
[~2022-02-27] MED LIST changes: -ISOVUE-M 300 61% 15ML VIAL As Ordered ONE; -LIDOCAINE 1% SDV 30ML VIAL As Ordered ONE; -NORCO, ANEXSIA 5/325MG TABLET (HYDROcodone/ACETAMINOPHEN) As Ordered ONE; -diazePAM 5MG TABLET As Ordered ONE; -methylPREDNISolone SUSP 40MG/ML 1ML VIAL (DEPO MEDROL) As Ordered ONE
== END ==
LOC: M PAIN 10:30
PROVIDERS: ATTEND Nurse Practitioner Family
DX: M51.16 Intervertebral disc disorders with radiculopathy, lumbar region (principal); L70.9 Acne, unspecified; E78.00 Pure hypercholesterolemia, unspecified; F41.9 Anxiety disorder, unspecified; I10 Essential (primary) hypertension; L30.9 Dermatitis, unspecified; H18.609 Keratoconus, unspecified, unspecified eye; M79.671 Pain in right foot; G25.81 Restless legs syndrome; K21.9 Gastro-esophageal reflux disease without esophagitis; E66.01 Morbid (severe) obesity due to excess calories; Z86.16 Personal history of COVID-19; Z68.43 Body mass index [BMI] 50.0-59.9, adult; Z79.891 Long term (current) use of opiate analgesic; Z79.899 Other long term (current) drug therapy; Z88.2 Allergy status to sulfonamides

== ENCOUNTER → 2022-04-11 | Outpatient (REF) | payer OTHER | LOC: M SFHCWAGY 17:22 | PROVIDERS: ATTEND Advanced Practice Midwife | DX: Z12.4 Encounter for screening for malignant neoplasm of cervix (principal) | CPT/HCPCS: 87624; G0123 ==

== ENCOUNTER → 2022-05-09 | Outpatient (CLI) | payer OTHER | LOC: M WHC 15:32 | PROVIDERS: ATTEND Advanced Practice Midwife | DX: Z12.31 Encounter for screening mammogram for malignant neoplasm of breast (principal) ==

== ENCOUNTER → 2022-05-22 | Outpatient (CLI) | payer OTHER | LOC: M LABSMTC 09:49 | PROVIDERS: ATTEND Anesthesiology | DX: Z01.812 Encounter for preprocedural laboratory examination (principal); Z11.52 Encounter for screening for COVID-19 ==

== ENCOUNTER → 2022-05-25 | Outpatient (CLI) | payer OTHER | LOC: M LABSMTC 10:54 | PROVIDERS: ATTEND Anesthesiology | DX: Z01.812 Encounter for preprocedural laboratory examination (principal); Z11.52 Encounter for screening for COVID-19 ==

== ENCOUNTER → 2022-05-30 | Outpatient (CLI) | payer OTHER ==
[~2022-05-30] MED LIST changes: +BUPIVACAINE HCL 0.25% 30ML VIAL As Ordered ONE; +ISOVUE-M 300 61% 15ML VIAL As Ordered ONE; +LIDOCAINE 1% SDV 30ML VIAL As Ordered ONE; +NORCO, ANEXSIA 5/325MG TABLET (HYDROcodone/ACETAMINOPHEN) As Ordered ONE; +dexameTHASONE 10MG/1ML VIAL PRES.FREE (J1100 PER 1MG) As Ordered ONE; +diazePAM 5MG TABLET As Ordered ONE
== END ==
LOC: M PAIN 12:30
PROVIDERS: ATTEND Anesthesiology
DX: M51.16 Intervertebral disc disorders with radiculopathy, lumbar region (principal); L70.9 Acne, unspecified; E78.00 Pure hypercholesterolemia, unspecified; F41.9 Anxiety disorder, unspecified; K21.9 Gastro-esophageal reflux disease without esophagitis; E66.9 Obesity, unspecified; I10 Essential (primary) hypertension; Z86.16 Personal history of COVID-19; Z68.43 Body mass index [BMI] 50.0-59.9, adult; Z79.891 Long term (current) use of opiate analgesic; Z79.899 Other long term (current) drug therapy; Z88.2 Allergy status to sulfonamides
CPT/HCPCS: 64483; 64484; J1100

== ENCOUNTER → 2022-08-02 | Outpatient (CLI) | payer OTHER ==
[~2022-08-02] MED LIST changes: -BUPIVACAINE HCL 0.25% 30ML VIAL As Ordered ONE; -ISOVUE-M 300 61% 15ML VIAL As Ordered ONE; -LIDOCAINE 1% SDV 30ML VIAL As Ordered ONE; -NORCO, ANEXSIA 5/325MG TABLET (HYDROcodone/ACETAMINOPHEN) As Ordered ONE; -dexameTHASONE 10MG/1ML VIAL PRES.FREE (J1100 PER 1MG) As Ordered ONE; -diazePAM 5MG TABLET As Ordered ONE
== END ==
LOC: M PAIN 11:30
PROVIDERS: ATTEND Anesthesiology
DX: M51.17 Intervertebral disc disorders with radiculopathy, lumbosacral region (principal); M51.16 Intervertebral disc disorders with radiculopathy, lumbar region; L70.9 Acne, unspecified; E78.00 Pure hypercholesterolemia, unspecified; F41.9 Anxiety disorder, unspecified; K21.9 Gastro-esophageal reflux disease without esophagitis; E66.9 Obesity, unspecified; I10 Essential (primary) hypertension; Z86.16 Personal history of COVID-19; Z68.43 Body mass index [BMI] 50.0-59.9, adult; Z79.891 Long term (current) use of opiate analgesic; Z79.899 Other long term (current) drug therapy; Z88.2 Allergy status to sulfonamides

== ENCOUNTER → 2022-09-18 | Outpatient (CLI) | payer OTHER | LOC: M LABSMTC 09:24 | PROVIDERS: ATTEND Anesthesiology | DX: Z01.812 Encounter for preprocedural laboratory examination (principal) ==

== ENCOUNTER → 2022-09-21 | Outpatient (CLI) | payer OTHER ==
[~2022-09-21] MED LIST changes: +ISOVUE-M 300 61% 15ML VIAL As Ordered ONE; +LIDOCAINE 1% SDV 30ML VIAL As Ordered ONE; +diazePAM 5MG TABLET As Ordered ONE; +methylPREDNISolone SUSP 40MG/ML 1ML VIAL (DEPO MEDROL) As Ordered ONE; +oxyCODONE 5MG TAB As Ordered ONE
== END ==
LOC: M PAIN 11:30
PROVIDERS: ATTEND Anesthesiology
DX: M51.16 Intervertebral disc disorders with radiculopathy, lumbar region (principal); M51.17 Intervertebral disc disorders with radiculopathy, lumbosacral region; L70.9 Acne, unspecified; E78.00 Pure hypercholesterolemia, unspecified; F41.9 Anxiety disorder, unspecified; I10 Essential (primary) hypertension; K21.9 Gastro-esophageal reflux disease without esophagitis; E66.9 Obesity, unspecified; Z68.43 Body mass index [BMI] 50.0-59.9, adult; Z79.899 Other long term (current) drug therapy; Z79.891 Long term (current) use of opiate analgesic; Z88.2 Allergy status to sulfonamides
CPT/HCPCS: 62323; J1030; Q9967

== ENCOUNTER → 2022-10-30 | Outpatient (CLI) | payer OTHER ==
[~2022-10-30] MED LIST changes: -ISOVUE-M 300 61% 15ML VIAL As Ordered ONE; -LIDOCAINE 1% SDV 30ML VIAL As Ordered ONE; -diazePAM 5MG TABLET As Ordered ONE; -methylPREDNISolone SUSP 40MG/ML 1ML VIAL (DEPO MEDROL) As Ordered ONE; -oxyCODONE 5MG TAB As Ordered ONE
== END ==
LOC: M PAIN 10:15
PROVIDERS: ATTEND Nurse Practitioner Family
DX: M51.16 Intervertebral disc disorders with radiculopathy, lumbar region (principal); L70.9 Acne, unspecified; E78.00 Pure hypercholesterolemia, unspecified; F41.9 Anxiety disorder, unspecified; I10 Essential (primary) hypertension; K21.9 Gastro-esophageal reflux disease without esophagitis; G25.81 Restless legs syndrome; E66.09 Other obesity due to excess calories; Z68.43 Body mass index [BMI] 50.0-59.9, adult; Z88.2 Allergy status to sulfonamides; Z79.891 Long term (current) use of opiate analgesic; Z79.899 Other long term (current) drug therapy

== ENCOUNTER → 2022-11-08 | Outpatient (CLI) | payer OTHER | LOC: M RAD 10:52 | PROVIDERS: ATTEND Nurse Practitioner Family | DX: M51.16 Intervertebral disc disorders with radiculopathy, lumbar region (principal); M51.36 Other intervertebral disc degeneration, lumbar region; M51.37 Other intervertebral disc degeneration, lumbosacral region ==

== ENCOUNTER → 2022-11-20 | Outpatient (CLI) | payer OTHER | LOC: M PLAIMG 13:52 | PROVIDERS: ATTEND Physician Assistant | DX: J32.8 Other chronic sinusitis (principal) ==

== ENCOUNTER 2022-12-07 13:36 | Outpatient (RCR) | payer OTHER | END 2022-12-13 | LOC: M ST 13:36 | PROVIDERS: ATTEND Otolaryngology | DX: R49.0 Dysphonia (principal) ==

== ENCOUNTER → 2023-01-08 | Outpatient (CLI) | payer OTHER | LOC: M PAIN 13:30 | PROVIDERS: ATTEND Anesthesiology | DX: M51.16 Intervertebral disc disorders with radiculopathy, lumbar region (principal); G89.29 Other chronic pain; I10 Essential (primary) hypertension; K21.9 Gastro-esophageal reflux disease without esophagitis; Z86.59 Personal history of other mental and behavioral disorders; Z88.2 Allergy status to sulfonamides; E66.01 Morbid (severe) obesity due to excess calories; Z68.43 Body mass index [BMI] 50.0-59.9, adult; Z79.899 Other long term (current) drug therapy ==

== ENCOUNTER → 2023-01-19 | Outpatient (CLI) | payer OTHER ==
[~2023-01-19] MED LIST changes: -ROPI0.253; +ROPI5TAB19
== END ==
LOC: M PAIN 16:45
PROVIDERS: ATTEND Anesthesiology
DX: M51.16 Intervertebral disc disorders with radiculopathy, lumbar region (principal); G89.29 Other chronic pain; I10 Essential (primary) hypertension; K21.9 Gastro-esophageal reflux disease without esophagitis; Z86.59 Personal history of other mental and behavioral disorders; Z88.2 Allergy status to sulfonamides; Z79.899 Other long term (current) drug therapy

== ENCOUNTER → 2024-04-08 | Outpatient (CLI) | payer OTHER | LOC: M WHC 15:32 | PROVIDERS: ATTEND Advanced Practice Midwife | DX: Z12.31 Encounter for screening mammogram for malignant neoplasm of breast (principal) ==

== ENCOUNTER → 2024-04-11 | Outpatient (CLI) | payer OTHER ==
[2024-04-11 16:18] LABS: BASO % 0.4 % (0.0-1.0); EOS # 0.1 10^3/uL (0.0-0.5); EOS % 1.4 % (0.0-3.0); HEMATOCRIT 36.6 % (36.0-47.0); LYMPH # 2.2 10^3/uL (1.5-5.0); LYMPH % 21.2 % (24.0-44.0); MEAN CORPUSCULAR HGB CONC 32.8 g/dl (32.0-36.5); MEAN CORPUSCULAR VOLUME 82.2 fl (80.0-96.0); MONO # 0.7 10^3/uL (0.0-0.8); MONO % 6.9 % (2.0-8.0); NEUTROPHILS # 7.2 10^3/uL (1.5-8.5); NEUTROPHILS % 69.6 % (36.0-66.0); PLATELET COUNT, AUTOMATED 400 10^3/uL (150-450); RED BLOOD COUNT 4.45 10^6/uL (4.00-5.40); WHITE BLOOD COUNT 10.3 10^3/uL (4.0-10.0)
[2024-04-11 16:23] LABS: ERYTHROCYTE SEDIMENTATION RATE 64 mm/hr (0-20)
[2024-04-11 16:42] LABS: IMMUNOGLOBULIN A 308.2 MG/DL (40-350); IMMUNOGLOBULIN G 1076 MG/DL (650-1600)
== END ==
LOC: M LAB 15:18 → M LAB LCGH 15:18
PROVIDERS: ATTEND Allergy & Immunology Allergy
DX: D84.9 Immunodeficiency, unspecified (principal)

== ENCOUNTER → 2024-07-02 | Outpatient (CLI) | payer OTHER ==
[~2024-07-02] MED LIST changes: -CYCL5TAB PO; +CYCL5TAB4 PO
== END ==
LOC: M PLALAB 15:07
PROVIDERS: ATTEND Allergy & Immunology Allergy
DX: D84.9 Immunodeficiency, unspecified (principal)

== ENCOUNTER 2024-09-19 11:29 | Day surgery (SDC) | payer OTHER ==
[~2024-09-19] VITALS: Ht 165.1 cm; Wt 135.6 kg
[~2024-09-19 11:29] MED LIST changes: +ALBU8.5H INH; +DEBL1TAB PO; +FLUT1BLS16 INH; +MELO7.5T35 PO; +NORG0.25 PO; +OMEP40CA5 PO; -SERT50TA29; +SERT50TA29 PO
[2024-09-19 13:10] VITALS: TEMP 97.8
[2024-09-19 13:25] VITALS: BP 168/79; O2SAT 98
== END 2024-09-19 13:28 | disposition home or self-care (01) ==
LOC: M OPP 11:29
PROVIDERS: ATTEND Surgery
DX: Z12.11 Encounter for screening for malignant neoplasm of colon (principal); D12.2 Benign neoplasm of ascending colon; K57.30 Diverticulosis of large intestine without perforation or abscess without bleeding; Z88.2 Allergy status to sulfonamides; Z88.8 Allergy status to other drugs, medicaments and biological substances; Z79.899 Other long term (current) drug therapy; J45.909 Unspecified asthma, uncomplicated

== ENCOUNTER → 2025-04-13 | Outpatient (CLI) | payer OTHER | LOC: M WHC 15:28 | PROVIDERS: ATTEND Student in an Organized Health Care Education/Training Program | DX: Z12.31 Encounter for screening mammogram for malignant neoplasm of breast (principal) ==

== ENCOUNTER → 2025-04-27 | Outpatient (REF) | payer OTHER | LOC: M LAB REF 17:10 | PROVIDERS: ATTEND Family Medicine | DX: G25.81 Restless legs syndrome (principal) ==